=== PATIENT | female | born 2000 | race Caucasian/White ===

== ENCOUNTER 2023-02-19 18:40 | Emergency (ER) | payer OTHER, BC, SELFPAY ==
[2023-02-19] VITALS (11 sets, daily range): BP systolic 109–125; BP diastolic 67–81; PULSE 75–92; RESP 18; TEMP 36.4; O2SAT 94–99; BMI 22.5
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
== END 2023-02-19 20:05 | disposition home or self-care (01) ==
PROVIDERS: Emergency Provider Emergency Medicine Emergency Medical Services
DX: S06.0X1A Concussion with loss of consciousness of 30 minutes or less, initial encounter (principal); V43.92XA Unspecified car occupant injured in collision with other type car in traffic accident, initial encounter
CPT/HCPCS: 70450; 72125; 93005; 95992; 99284; 99291

== ENCOUNTER 2023-09-06 16:23 | Outpatient (CLI) | payer OTHER, MEDICAID, SELFPAY | END 2023-09-06 16:24 | disposition home or self-care (01) | LOC: NFLDREF 16:24 | PROVIDERS: Visit Provider Obstetrics & Gynecology | DX: O26.891 Other specified pregnancy related conditions, first trimester (principal); N89.8 Other specified noninflammatory disorders of vagina; E06.3 Autoimmune thyroiditis; Z3A.08 8 weeks gestation of pregnancy | CPT/HCPCS: 84439; 84443; 87491; 87591 ==

== ENCOUNTER 2023-09-11 12:28 | Outpatient (CLI) | payer OTHER, MEDICAID, SELFPAY ==
--- NOTE | 2023-09-11 12:15 | CRLHL7_ITS ---
For Patients: As a result of the Cures Act, medical imaging exams and procedure reports are released immediately into your electronic medical record. You may view this report before your referring provider. If you have questions, please contact your health care provider. INDICATION: First trimester scan, establish dates. COMPARISON: None. TECHNIQUE: Real-time freeman-scale imaging of the pelvis was performed. FINDINGS: Sonographic imaging demonstrates a single living intrauterine gestation. The embryo demonstrates a regular cardiac rate measuring 185 beats per minute. The embryo`s crown-rump length measurement of 1.9 cm corresponds to a gestational age of 8 weeks 3 days with a sonographic due date of 04/19/2024. There is a normal-appearing yolk sac. There are no gross abnormalities noted within the embryo at this early state of development. The gestational sac has a normal appearance. There is a 5 x 5 x 9 millimeter perigestational hemorrhage. The amount of fluid within the sac appears appropriate for gestational age. The cervix is closed. The myometrium appears normal. The ovaries are of normal size. Corpus luteal cyst right ovary. There are no suspicious fluid collections noted in the cul-de-sac. IMPRESSION: Single living intrauterine with sonographic gestational age 8 weeks 5 days and sonographic due date 04/19/2024. Small subchorionic hemorrhage measuring 5 x 5 x 9 millimeters. Dictated by Jayson Araujo MD @ 09/12/2023 7:28:48 AM (Electronically Signed)
== END 2023-09-11 12:29 | disposition home or self-care (01) ==
LOC: US 12:28
PROVIDERS: Visit Provider Registered Nurse
DX: Z34.91 Encounter for supervision of normal pregnancy, unspecified, first trimester (principal); O20.9 Hemorrhage in early pregnancy, unspecified; Z3A.08 8 weeks gestation of pregnancy
CPT/HCPCS: 76817; 86592; 86703; 86704; 86706; 86762; 86787; 86803; 86850; 86900; 86901; 87086; 87340

== ENCOUNTER 2023-09-11 14:35 | Outpatient (CLI) | payer OTHER, SELFPAY | END 2023-09-11 14:36 | disposition home or self-care (01) | LOC: NFLDREF 09-12 08:14 | PROVIDERS: Visit Provider Registered Nurse | DX: O26.891 Other specified pregnancy related conditions, first trimester (principal); N89.8 Other specified noninflammatory disorders of vagina; R11.2 Nausea with vomiting, unspecified | CPT/HCPCS: 86592; 86703; 86704; 86706; 86762; 86787; 86803; 86850; 86900; 86901; 87086; 87340 ==

== ENCOUNTER 2023-10-08 13:01 | Outpatient (CLI) | payer OTHER, MEDICAID, SELFPAY ==
--- NOTE | 2023-10-08 13:00 | CRLHL7_ITS ---
For Patients: As a result of the Century Cures Act, medical imaging exams and procedure reports are released immediately into your electronic medical record. You may view this report before your referring provider. If you have questions, please contact your health care provider. INDICATION: Follow-up subchorionic hemorrhage COMPARISON: 09/11/2023 TECHNIQUE: Real-time freeman-scale imaging of the pelvis was performed. FINDINGS: Subchorionic hemorrhage is not present. Cervix is closed and measures 3.4 cm. heart rate 165 beats per minute. [place]-rump length of 5.7 cm, 12 weeks 2 days, 04/19/2024. IMPRESSION: Resolution of previously noted subchorionic hemorrhage. Dictated by Jayson Araujo MD @ 10/09/2023 6:43:19 AM (Electronically Signed)
== END 2023-10-08 13:02 | disposition home or self-care (01) ==
LOC: US 13:02
PROVIDERS: Visit Provider Advanced Practice Midwife
DX: O20.9 Hemorrhage in early pregnancy, unspecified (principal)
CPT/HCPCS: 76816

== ENCOUNTER 2023-11-07 09:43 | Outpatient (CLI) | payer OTHER, SELFPAY | END 2023-11-07 09:44 | disposition home or self-care (01) | PROVIDERS: Visit Provider Midwife | DX: E03.8 Other specified hypothyroidism (principal); B37.31 Acute candidiasis of vulva and vagina; Z11.3 Encounter for screening for infections with a predominantly sexual mode of transmission | CPT/HCPCS: 84439; 84443; 87109; 87491; 87591 ==

== ENCOUNTER 2023-11-12 16:12 | Outpatient (CLI) | payer OTHER, SELFPAY ==
--- NOTE | 2023-11-12 16:00 | CRLHL7_ITS ---
For Patients: As a result of the Century Cures Act, medical imaging exams and procedure reports are released immediately into your electronic medical record. You may view this report before your referring provider. If you have questions, please contact your health care provider. INDICATION: Vaginal bleeding, abdominal tenderness COMPARISON: None. TECHNIQUE: Real-time freeman-scale imaging of the pelvis was performed. FINDINGS: Single living intrauterine with heart rate 154 beats per minute. Sonographic gestational age 17 weeks 0 days and a sonographic due date of 04/21/2024. Variable position. Posterior placenta. Normal amniotic fluid with single deepest pocket 3.8 cm. Cervix is closed measuring 3.3 cm. Estimated weight 188 grams, 43rd percentile. BPD 3.4 cm, 16 weeks 4 days, 20th percentile. HC 13.1 cm, 16 weeks 5 days, 13th percentile. HC 11.6 cm, 17 weeks 2 days, 51st percentile. FL 2.4 cm, 17 weeks 3 days, 48th percentile. IMPRESSION: Normal exam. No suspicious findings. Dictated by Jayson Araujo MD @ 11/18/2023 11:41:11 AM (Electronically Signed)
== END 2023-11-12 16:13 | disposition home or self-care (01) ==
LOC: US 16:12
PROVIDERS: Visit Provider Advanced Practice Midwife
DX: O46.92 Antepartum hemorrhage, unspecified, second trimester (principal); Z3A.17 17 weeks gestation of pregnancy
CPT/HCPCS: 76815

== ENCOUNTER 2023-11-22 09:48 | Outpatient (CLI) | payer OTHER, SELFPAY | END 2023-11-22 09:49 | disposition home or self-care (01) | LOC: NFLDREF 09:48 | PROVIDERS: Visit Provider Midwife | DX: B37.31 Acute candidiasis of vulva and vagina (principal) | CPT/HCPCS: 87102 ==

== ENCOUNTER 2023-12-16 11:14 | Outpatient (CLI) | payer OTHER, MEDICAID, SELFPAY ==
--- NOTE | 2023-12-16 11:15 | CRLHL7_ITS ---
For Patients: As a result of the Century Cures Act, medical imaging exams and procedure reports are released immediately into your electronic medical record. You may view this report before your referring provider. If you have questions, please contact your health care provider. INDICATION: Evaluate anatomy. COMPARISON: 11/12/2023, 10/08/2023, 09/11/2023 TECHNIQUE: Real time freeman scale imaging of the fetus was performed as well as color Doppler analysis of the umbilical vessels. FINDINGS: Sonographic imaging demonstrates a single living intrauterine gestation. Fetus demonstrates a regular cardiac rate of 145 beats per minute. Fetus has a breech position. The placenta lies posteriorly without evidence of placenta previa. Edge of the placenta is located 7.1 cm from the internal cervical os. Amniotic fluid volume appears normal. Single deepest vertical pocket: 6.5 cm. The cervix is closed and measures 3.9 cm in length. The composite ultrasound gestational age is calculated at 21 weeks 2 days with an estimated sonographic due date of 04/25/2024. The estimated weight is 435 grams which lies at the 19th %. The following biometric measurements were obtained: Biparietal diameter: 19.1 cm/21 weeks 2 days 11th% Head circumference: 19.1 cm/21 weeks 2 days 11th% Abdominal circumference: 16.4 cm/21 weeks 3 days 22nd% Femur length: 3.7 cm/21 weeks 6 days 29th% The HC/AC ratio measures: 1.16 range (1.06-1.24) On anatomic survey, there is a normal appearance of the cerebral ventricles, cavum septi pellucidi, cisterna magna and cerebellum. The nose, lips, and facial profile appear normal. The cervical, thoracic and lumbar spine are well visualized and appear normal. Incomplete visualization of the heart anatomy due to position. The diaphragm and stomach appear normal. The kidneys and bladder also appear normal. There is a normal three-vessel cord. The hands are not well visualized due to position nor is the placental cord insertion. IMPRESSION: Sonographic gestational age 21 weeks 2 days and sonographic due date of 04/25/2024. Sonographic age is 6 days behind the clinical age. Estimated weight 19th percentile. Abdominal circumference 22nd percentile. Incomplete evaluation of the hands, placental cord insertion, four-chamber heart and outflow tracts. Remainder of the anatomic survey is unremarkable. Short-term follow-up recommended. Dictated by Jayson Araujo MD @ 12/17/2023 3:01:10 PM (Electronically Signed)
== END 2023-12-16 11:15 | disposition home or self-care (01) ==
PROVIDERS: Visit Provider Midwife
DX: Z34.92 Encounter for supervision of normal pregnancy, unspecified, second trimester (principal); Z3A.21 21 weeks gestation of pregnancy
CPT/HCPCS: 76805

== ENCOUNTER 2023-12-16 13:35 | Outpatient (CLI) | payer OTHER, MEDICAID, SELFPAY ==
[2023-12-16 19:40] LABS: Bacterial Vaginosis* Negative (Negative); Candida glab/krus NOT DETECTED (No Detected); Candida species NOT DETECTED (No Detected); Trichomonas vaginalis NOT DETECTED (No Detected)
== END 2023-12-16 13:36 | disposition home or self-care (01) ==
PROVIDERS: Visit Provider Advanced Practice Midwife
DX: O26.892 Other specified pregnancy related conditions, second trimester (principal); N89.8 Other specified noninflammatory disorders of vagina; E03.8 Other specified hypothyroidism; Z3A.22 22 weeks gestation of pregnancy
CPT/HCPCS: 81513; 84443; 87481; 87661

== ENCOUNTER 2023-12-31 13:11 | Outpatient (CLI) | payer OTHER, MEDICAID, SELFPAY ==
--- NOTE | 2023-12-31 13:00 | CRLHL7_ITS ---
For Patients: As a result of the Century Cures Act, medical imaging exams and procedure reports are released immediately into your electronic medical record. You may view this report before your referring provider. If you have questions, please contact your health care provider. INDICATION: f/u anatomy COMPARISON: OB ultrasound on 16 December 2023. TECHNIQUE: Real time freeman scale imaging of the fetus was performed as well as color Doppler analysis of the umbilical vessels. FINDINGS: Sonographic imaging demonstrates a single living intrauterine gestation. The fetus has a regular cardiac rate of 137 beats per minute. The fetus has a vertex orientation. The placenta lies posterior without evidence of placenta previa. Amniotic fluid volume appears normal. The cervix is not visualized. On limited follow-up anatomic survey, there is a normal four-chamber heart view and the left and right ventricular outflow tracts appear normal, and the bilateral hands appear normal. IMPRESSION: 1. Single living intrauterine gestation in vertex position with heart rate 137. The placenta lies posterior without evidence of placenta previa. 2. On limited follow-up anatomic survey, there is a normal four-chamber heart view and the left and right ventricular outflow tracts appear normal, and the bilateral hands appear normal. Dictated by Jose Finney MD @ 01/01/2024 12:17:41 PM (Electronically Signed)
== END 2023-12-31 13:12 | disposition home or self-care (01) ==
LOC: US 13:13
PROVIDERS: Visit Provider Advanced Practice Midwife
DX: Z34.90 Encounter for supervision of normal pregnancy, unspecified, unspecified trimester (principal)
CPT/HCPCS: 76816

== ENCOUNTER 2024-01-27 09:30 | Outpatient (CLI) | payer OTHER, MEDICAID, SELFPAY | END 2024-01-27 09:31 | disposition home or self-care (01) | PROVIDERS: Visit Provider Midwife | DX: Z34.93 Encounter for supervision of normal pregnancy, unspecified, third trimester (principal); O26.893 Other specified pregnancy related conditions, third trimester; A49.3 Mycoplasma infection, unspecified site; Z3A.28 28 weeks gestation of pregnancy | CPT/HCPCS: 86592; 87109 ==

== ENCOUNTER 2024-02-10 09:44 | Outpatient (CLI) | payer OTHER, MEDICAID, SELFPAY | END 2024-02-10 09:45 | disposition home or self-care (01) | PROVIDERS: Visit Provider Midwife | DX: O26.893 Other specified pregnancy related conditions, third trimester (principal); E03.8 Other specified hypothyroidism; O26.819 Pregnancy related exhaustion and fatigue, unspecified trimester; Z3A.30 30 weeks gestation of pregnancy | CPT/HCPCS: 82728; 84439; 84443; 86704; 86706 ==

== ENCOUNTER 2024-02-18 15:00 | Outpatient (CLI) | payer OTHER, MEDICAID, SELFPAY ==
[2024-02-18 19:16] LABS: Bacterial Vaginosis* Negative (Negative); Candida glab/krus NOT DETECTED (No Detected); Candida species DETECTED (No Detected); Trichomonas vaginalis NOT DETECTED (No Detected)
== END 2024-02-18 15:01 | disposition home or self-care (01) ==
PROVIDERS: Visit Provider Midwife
DX: N90.89 Other specified noninflammatory disorders of vulva and perineum (principal); N89.8 Other specified noninflammatory disorders of vagina; R82.90 Unspecified abnormal findings in urine
CPT/HCPCS: 81513; 87086; 87252; 87481; 87661

== ENCOUNTER 2024-03-03 21:33 | Emergency (ER) | payer OTHER, MEDICAID, SELFPAY ==
--- OUTSIDE RECORDS SUMMARY | 2024-03-03 21:35 | XMS_ITS | Clinical Summary ---
Author Organization [facility] Address [address], [place] [address] Care Team Providers Care Tattoo Identifier Name Role Phone Jayson Saxena MD Primary Care Provider [phone] Source Comments You are receiving this document as you are listed as the primary care provider,follow-up provider, or the patient has been referred to you for consultation.This is in compliance with the Medicare and[facility] EHR Incentive Program,which states Providers who transition their patient to another setting of careor provider of care or refers their patient to another provider of care shouldprovide summary care record for each transition of care or referral. Clouli Allergies Active Allergy Reactions Criticality Noted Date Comments Acetaminophen Gastrointestinal 07/25/2022 Lactose Gastrointestinal,Oth er, see comments,Headache 10/14/2017 Other reaction(s): Headache Medications Medication Sig Dispensed Refills Start Date End Date Status levothyroxine (SYNTHROID) 75 MCG tabletIndications:Hy pothyroidism, unspecified type (HRC) Take 1 Tablet (75 mcg) by mouth daily. 90 Tablet 3 08/01/2022 Active valACYclovir (VALTREX) 500 MG tablet TAKE 1 TABLET(500 MG) BY MOUTH EVERY DAY 90 Tablet 3 08/12/2022 Active Vit-Fe Lzd-FF-Uhovg (ONE-A-DAY WOMENS ) 28-0.8 & 223 MG MISC Take 1 Tablet by mouth daily. 09/10/2023 Active FOLIC ACID OR Active aspirin EC 81 MG enteric coated tablet Take 1 Tablet (81 mg) by mouth daily. Active pyridoxine (VITAMIN B-6) 100 MG tablet Take 0.5 Tablets (50 mg) by mouth daily. Active terconazole (TERAZOL7) 0.4 % vaginal cream Insert one applicator full vaginally at bedtime for 7 days, then 2-3 times per week for 1 month. 90 g 1 12/16/2023 Active Active Problems Problem Noted Date Diagnosed Date Careplan: Healthy Beginnings 01/01/2024 Overview (01/01/2024): This patient is enrolled in the Healthy Beginnings Program. The program provides patients with support, education, referrals and resources during their . Reason for enrollment: multiple yes on questionnaire, psychosocial support during For more information, please contact Ruchi Valdovinos RN, Healthy Beginnings After School Counselor, at [phone]. 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 Anxiety 08/01/2022 Mood disorder 08/01/2022 Borderline personality disorder 10/14/2019 Generalized anxiety disorder 01/21/2014 Estimated Date of Delivery Comme nts Yes 04/17/2024 Based on Ultraso und Resolved Problems Problem Noted Date Diagnosed Date Resolved Date Recurrent UTI 08/01/2022 01/30/2023 Encounters Date Type Department Care Team Description 01/13/2024 Notes/Orders [facility]-[employer]ID WAST[employer]ANDFILL TECHNICIAN [address] [place] [address], [address] [address] Ruchi Valdovinos RN Careplan: Healthy Beginnings (Primary Dx) 01/01/2024 Telephone [facility]-[employer] TECHNICIAN [id number] [place] [address], [address] [address] Gauri Macedo7 Patient Care Coordination 01/01/2024 E-Visit [facility]-[employer] W[employer]E [employer] TECHNICIAN [id number] [place] [address], [address] [address] Mychart, Generic Provider 01/01/2024 Telephone [facility]-SOLID WASTE [employer]ANDFILL TECHNICIAN [id number] [place] [address], [address] [place] [address] Gauri Macedo Obg7 [facility]nings New Visit 12/26/2023 Telephone [facility] [address] [place] [address] Branden Stokes MD 12/26/2023 [facility]Visit [facility] [facility] [address] [place] [address] Mychart, Generic Provider 12/17/2023 Notes/Orders [facility]-[employer]ID W[employer]E [employer]ANDFILL TECHNICIAN [address] [facility], [address] [place] [address] [facility] Obg7 12/17/2023 E[facility]Visit [facility] [address] [place] [address] Yobanit, Generic Provider 12/16/2023 Telephone [facility]-[employer] TECHNICIAN [address] [facility], [address] [place] [address] Cyndi Jimenez APRN, CNP Follow-up 12/13/2023 8:15 AM CDT Initial [facility] Services-SOLID WASTE [employer]FILL TECHNICIAN [address] [facility], [address] [place] [address] Cyndi Jimenez APRN, CNP INITIAL VISIT 12/13/2023 E-Visit [facility] [address] [place] [address]. [place] [address] Mychart, Generic Provider from Last 3 Months Immunizations Name Administration Dates Next Due 4vHPV (Gardasil) 04/13/2011,01/19/2011, 1 DTaP 07/21/2003, 1,1998,1998,1998 DTaP (Daptacel) 07/21/2003 Flu Vac (3+ yrs) 12/05/2011, 1,01/18/2010,2006 HepA Ped/Adol (1-18 yrs) 01/19/2011,08/02/2006 HepB Adult (Engerix-B, 20+ y rs, 3 dose series) 12/13/2023 HepB Ped/Adol (0-18 yrs) 1998,1998,0 1998 HepB, Unspecified Formulation 1998, 999,1998 Hib, Unspecified Formulation 08/14/2000, 1998,1998,1998 IPV (Polio) 07/21/2003 Influenza [id number] 02/14/2009 Influenza IIV4 (Quadrivalent ) 0.5mL (16949) 03/08/2016 Influenza LAIV3 2-49 years (Flumist) 12/05/2011, 01/19/2011 Influenza aIIV3 65+ Years (Fluad) 2011,01/19/2011,01/18/2010,2006 Influenza, Unspecified Formulation 03/08/2016 MCV4 (Menactra) 10/06/2010 MCV4 Menveo 2m.+ (two vial) 07/05/2015 MMR 07/21/2003,04/20/1999 OPV, Trivalent (Orimune or tOPV) 1998 Polio, Unspecified Formulation 4,08/14/2000,1998,1998 Tdap 10/06/2010 Varicella 08/02/2006,07/21/2003 Family History Medical History Relation Name Comments Mental Disorder Father Depression Mother Mental Disorder Mother Thyroid Disorder Mother Depression Brother Mental Disorder Brother Mental Disorder Maternal Grandfather Depression Maternal Grandmother Mental Disorder Maternal Grandmother Mental Disorder Paternal Grandmother Depression Sister Mental Disorder Sister Cancer, Breast Negative Family History Cancer, Colon Negative Family History Cancer, Ovary Negative Family History Relation Name Status Comments Father Alive Mother Alive Brother Alive Maternal Grandfather Alive Maternal Grandmother Alive Paternal Grandfather Paternal Grandmother Alive Sister Alive Social History Tobacco Use Types Packs/Day Years Used Date Smoking Tobacco: Never Passive Smoke Exposure: Past Smokeless Tobacco: Never Tobacco Cessation:Counseling Given: Not Answered Alcohol Use Standard Drinks/Week Comments Not Currently 0 (1 standard drink = 0.6 oz pur e alcohol) 1 x mo PHQ-2 Answer Date Recorded PHQ-2 Score 5 08/01/2022 Depression Answer Date Recor ded Last EPDS Total Score 19 12/13/2023 Last EPDS Self Harm Result 2-->sometimes 12/12 Estimated Date of Delivery Comme nts Yes 04/17/2024 Based on Ultraso und Sex and Gender Information Value Date Recorded Sex Assigned at Not on file Gender Identity Not on file Sexual Orientation Not on file Last Filed Vital Signs Vital Sign Reading Time Taken Comments Blood Pressure 109/54 12/13/2023 8:35 AM CDT Pulse 79 12/13/2023 8:35 AM CDT Temperature 36.8 C (98.2 F) 07/25/2022 4:01 PM CDT Respiratory Rate 20 07/25/2022 4:01 PM CDT Oxygen Saturation 100% 07/25/2022 4:01 PM CDT Inhaled Oxygen Concentration - - Weight 63 kg (138 lb 12.8 oz) 12/13/2023 8:35 AM CDT Height 167.6 cm (5' 6) 12/13/2023 8:35 AM CDT Body Mass Index 22.4 12/13/2023 8:35 AM CDT Plan of Treatment Health Maintenance Due Date Last Done Comments Cervical Cancer Screening Due 1998 Hep C Screening (Preventive Services) 1998 Adult Preventive Visit 2016 DTaP/Tdap/Td (7 - Tdap) 10/06/2020 10/07/19, 07/21/2003, 07/21/2003, Additional history exists COVID-19 Vaccine ( season) 2023 Influenza (#1) 2023 03/08/2016, 07/2016, 12/05/2011, Additional history exists Chlamydia 05/22/2024 05/23/2023, 05/03, 03/15/2021 Zoster/Shingles (1 of 2) 2048 Hib Completed 08/14/2000, 10/02, 1998, Additional history exists IPV (Polio) Completed 07/21/2003, 07/02, 08/14/2000, Additional history exists HepA Completed 01/19/2011, 08/02/2006 HPV Vaccine Completed 04/13/2011, 01/02, 10/06/2010 MCV4 Completed 07/05/2015, 10/06/2010 HIV Screening (Preventive Services) Completed 05/23/2023 HepB Completed 12/13/2023, 10/02, 1998, Additional history exists Pneumococcal Aged Out No longer eligi ble based on patient's age to complete this topic Care Teams Tattoo Identifier Relationship Specialty [place] [address] [address] PCP - General Family Practice 08/06/22
--- OUTSIDE RECORDS SUMMARY | 2024-03-03 21:35 | XMS_ITS | Encounter Summary ---
Author Organization [facility] Address [address] [place] [address] Care Team Providers Care Motel Clerk Name Role Phone Jayson Saxena MD Primary Care Provider [phone] Encounter Details Date Type Department Care Team (Late st Contact Info) Description 12/26/2023 E[facility]Visit [facility] [address] [place] [address] Mychart, [place] [address] Social History Tobacco Use Types Packs/Day Years Used Date Smoking Tobacco: Never Passive Smoke Exposure: Past Smokeless Tobacco: Never Alcohol Use Standard Drinks/Week Comments Not Currently [...] on file Sexual Orientation Not on file documented as of this encounter Plan of Treatment Not on file documented as of this encounter Visit Diagnoses Not on filedocumented in this encounter Care Teams Motel Clerk Relationship Specialty [place] [address] [address] [address] PCP - General Family Practice 08/06/22 documented as of this encounter
--- OUTSIDE RECORDS SUMMARY | 2024-03-03 21:35 | XMS_ITS | Encounter Summary ---
Author Organization [facility] Address [address] [place] [address] Care Team Providers Care National Accounts Recruiter Name Role Phone Jayson Saxena MD Primary Care Provider [phone] Encounter Details Date Type Department Care Team (Late st Contact Info) Description 12/17/2023 E-Visit [facility] [facility] [address] [place] [address] Mychart, [place] [address] Social History Tobacco Use Types Packs/Day Years [...] on filedocumented in this encounter Care Teams National Accounts Recruiter Relationship Specialty [place] [address] [place] [address] PCP - General Family Practice 08/06/22 documented as of this encounter
--- OUTSIDE RECORDS SUMMARY | 2024-03-03 21:35 | XMS_ITS | Encounter Summary ---
Author Organization [facility] Address [address], [place] [address] Care Team Providers Care Casing Flusher Name Role Phone Jayson Saxena MD Primary Care Provider [phone] Encounter Details Date Type Department Care Team (Late st Contact Info) Description 01/01/2024 E-Visit [facility]-AVIATION MAINTENANCE INSTRUCTOR [id number] [place] [address] Kate, [place] [address] Social History Tobacco Use Types Packs/Day Years [...] on filedocumented in this encounter Care Teams Casing Flusher Relationship Specialty [place] [address] [place] [address] PCP - General Family Practice 08/06/22 documented as of this encounter
--- OUTSIDE RECORDS SUMMARY | 2024-03-03 21:35 | XMS_ITS | Clinical Summary ---
Author Organization [employer] [facility] Address [place], [place] [address] Care Team Providers Care Systems Lead Name Role Phone Clinic, [facility] Primary Care Pro vider Allergies Active Allergy Reactions Criticality Noted Date Comments Acetaminophen Other - Describe In Comment Field 08/03/2019 Lactose GI Upset 10/14/2017 Other reaction(s): Headache Medications No known medications Active Problems Problem Noted Date Diagnosed Date Genital herpes 04/27/2021 Borderline personality disorder 10/14/2019 Arthralgia of temporomandibular joint 07/31/2018 Moderate episode of recurrent major depressive d isorder 04/12/2017 Overview (04/27/2021): Buspar 2020 cymbalta 2020 lexapro 5767-7830 prozac 2015 Celexa 2014 Hydrozyzine 2015 Mirtazepine Nortriptyline 2019 Seroquel 2020 zoloft 2020 Trazodone 2018 Effexor 2019 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 Raynaud's phenomenon 03/12/2016 Generalized anxiety disorder 01/21/2014 Insomnia, psychophysiological 01/21/2014 Myopia 05/18/2013 Resolved Problems Problem Noted Date Diagnosed Date Resolved Date Recurrent UTI 11/29/2014 11/29/2014 Urinary urgency 11/29/2014 04/12/2017 MDD (major depressive disord er), single episode 05/18/2014 04/12/2017 Infectious mononucleosis 02/16/2014 Dysthymic disorder 01/21/2014 8 Subclinical hypothyroidism 10/30/2013 0 04/12/2017 Elevated TSH 10/19/2013 10/30/2013 Immunizations Name Administration Dates Next Due DTaP 07/21/2003, 1,1998,08/11,1998 Hepatitis A (Peds) 01/19/2011,08/02/2006 Hepatitis B (Peds) 1998,1998, 999 Hib Conjugate, Unspecified 08/14/2000,,1998,06/03 Human Papilloma Virus Vaccine 04/13/2011, 011,10/06/2010 Influenza A (H1N1), Inactiva sabine (Age >=3 Years) 02/14/2009 Influenza, IIV3 (Age >=3 years) 12/05/19 12,01/19/2011,01/18/2010,04/19 Influenza, IIV4 03/08/2016 MENINGOCOCCAL VACCINE 2 VIAL [id number] (MENVEO) 07/05/2015 MMR 07/21/2003,04/20/1999 Meningococcal Vaccine (Menactra) 10/06/2010 Polio Virus, Unspecified 07/21/2003,08/02,1998,06/03 Tdap 10/06/2010 Varicella Vaccine 08/02/2006,07/21/2003 Family History Medical History Relation Name Comments Hypertension Father Psychiatric illness Father Psychiatric illness Half-Brother autism, aspergers Psychiatric illness Half-Sister 1 autism Arthritis Maternal Grandfather Heart Disease Maternal Grandfather Heart failure Maternal Grandfather abn he art rhythm, cardioversion Hypertension Maternal Grandfather Stroke Maternal Grandfather Thyroid Disease Maternal Grandfather Arthritis Maternal Grandmother Blood Disease Maternal Grandmother Heart Disease Maternal Grandmother Hypertension Maternal Grandmother Osteoporosis Maternal Grandmother Cancer Maternal Uncle lung Heart Disease Maternal Uncle Hypertension Maternal Uncle Arthritis Mother Depression Mother Fibromyalgia Mother Psychiatric illness Mother Bipolar and OCD Thyroid Disease Mother Relation Name Status Comments Father Alive Half-Brother Alive Half-Sister 1 Alive Half-Sister 2 Alive Maternal Grandfather Alive Maternal Grandmother Alive Maternal Uncle Mother Alive Paternal Grandfather Paternal Grandmother Alive Social History Tobacco Use Types Packs/Day Years Used Date Smoking Tobacco: Never Smokeless Tobacco: Never Tobacco Cessation:Counseling Given: Yes Alcohol Use Standard Drinks/Week Comments No 0 (1 standard drink = 0.6 oz pur e alcohol) rarely [facility] Utilities Answer Date Recorded Do you have trouble paying f or utilities (for example, heat, electricity, water, phone)? Yes 05/23/2023 PHQ-2 Answer Date Recorded PHQ-2 TOTAL SCORE 6 05/09/2021 Social Connections Answer Date Recorded Do you often feel lonely or isolated from those around you? 4 05/23/2023 Financial Resource Strain Answer Date R ecorded Difficulty of Paying Living Expenses 1 05/23/2023 Difficulty of Paying Living Expenses 2 05/23/2023 Food Insecurity Answer Date Recorded Do you worry your food will run out before you are able to buy more? 1 05/23/2023 Transportation Needs Answer Date Record ed Does lack of transportation keep you from medica l appointments? 1 05/23/2023 Does lack of transportation keep you from work, meetings or getting things that you need? 1 05/23/2023 Housing Stability Answer Date Recorded What is your housing situation today? 3 05/23/2023 Interpersonal Safety Answer Date Record ed Are you being hit, kicked, p ushed or yelled at (see row info)? 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 on file Not on file Not on file Obstetrics History Last Filed Vital Signs Vital Sign Reading Time Taken Comments Blood Pressure 100/60 05/23/2023 9:48 AM CDT Pulse 70 05/23/2023 9:48 AM CDT Temperature 36.8 C (98.2 F) 02/11/2023 11:25 PM RESIDENCE LIFE DIRECTOR Respiratory Rate 16 02/11/2023 11:2 5 PM RESIDENCE LIFE DIRECTOR Oxygen Saturation 98% 05/23/2023 9:48 AM CDT Inhaled Oxygen Concentration - - Weight 62.1 kg (136 lb 14.4 oz) 05/23/2023 9:48 AM CDT Height 167.6 cm (5' 6) 05/23/2023 9:48 AM CDT Body Mass Index 22.1 05/23/2023 9:48 AM CDT Plan of Treatment Health Maintenance Due Date Last Done Comments Tetanus booster 10/06/2020 10/06/2010 Depression screening for age 12+ 05/09/2022 05/09/2021, 04/27/2021, 10/20/2019, Additional history exists COVID-19 vaccine series ( season) 2023 Influenza for age 9-49 11/03/2023 7, 12/05/2011, 01/19/2011, Additional history exists BMI (ht and wt on same day) for age 18+ 05/22/2024 05/23/2023, 04/27/2021, 07/31/2018, Additional history exists Pap test for age 21-65 09/05/2024 4, 09/06/2023, 04/04/2019 (Completed outside of [facility]) Tdap Completed 10/06/2010 HPV series for age 9-26 Completed 04/13/19 12, 01/19/2011, 10/06/2010 HIV for age 15-65 Completed 05/23/2023 Hepatitis C screening for age 18-79 Completed 05/23/2023 Pneumococcal series for age 6-49 Aged Out No longer eligible based on patient's age to complete this topic Procedures Procedure Name Priority Date/Time Associated Diagnosis Comments HOSPICE CONSULTANT THIN PREP PAP SCREEN IMAGED Routine 09/06/2023 3:25 PM CDT ANTI HIV 1/2 Routine 05/23/2023 10:11 AM CDT Screen for STD (sexually transmitted disease) ANTI HCV Routine 05/23/2023 10:11 AM CDT Screen for STD (sexually transmitted disease) from Last 3 Months or Most Recently Relevant to Health Maintenance Results * HOSPICE CONSULTANT THIN PREP PAP SCREEN IMAGED (09/06/2023 3:25 PM CDT) Case Report Gynecologic Cytology Report Case: [id number] Authorizing Provider: Yodit Boss MD Collected: 09/06/2023 1525 Ordering Location: [facility] Received: 09/10/2023 1003 First Screen: Renato Burgos Specimen: HOSPICE CONSULTANT ThinPrep Vial Screening, Cervical 09/12/2023 3:00 PM CDT [facility] INTERPRETATION/ RESULT NEGATIVE FOR INTRAEPITHELIAL LESION OR MALIGNANCY (NIL) (none) 09/12/2023 3:00 PM CDT [facility] ENTRAL LABORATORY NISM(S) Shift in tashi suggestive of bacterial vaginosis 09/12/2023 3:00 PM CDT [facility] ENTRAL LABORATORY SPECIMEN ADEQUACY Satisfactory for evaluation Endocervical component present 09/12/2023 3:00 PM CDT [facility] HPV REQUEST HPV and PAP 09/12/2023 3:00 PM CDT [facility] Date of LMP 07/07/2023 09/12/2023 3:00 PM CDT [facility] Last Pap Date 09/12/2023 3:00 PM CDT [facility] Comment:2020 Last Pap Result NIL 3:00 PM CDT [facility] Abnormal Pap or [place] Bx in last 5 years No 09/12/2023 3:00 PM CDT [facility] ENTRAL LABORATORY Menstrual Status 09/12/2023 3:00 PM CDT [facility] [place] Bx Done Today No 09/12/2023 3:00 PM CDT [facility] Additional Information 09/12/2023 3:00 PM CDT [facility] ENTRAL LABORATORY Comment: Interpreted at [facility], Central Laboratory - [address], [place] [address] Automated Review Successful 09/12/2023 3:00 PM CDT [facility] ENTRAL LABORATORY Comment:Specimen processed s uccessfully by automated concrete paver device, ThinPrep Imaging System, [employer] ANCILLARY TESTING HOSPICE CONSULTANT HPV Ordered, Please see separate report 09/12/2023 3:00 PM CDT [facility] Note The pap test is a screening technique, not a diagnostic procedure. It is used primarily to screen for squamous cancers and precursor lesions. Published studies have shown that it is subject to both false negative and false positive results. The pap test should not be used as the sole means to diagnose or exclude pre-malignant and malignant lesions. 09/12/2023 3:00 PM CDT [facility] Other (Cervical) 09/06/2023 3:25 PM CDT 09/10/2023 10:03 AM CDT Yodit Boss MD PATHOLOGY/CYTOLOGY Final Result Performing Organization Address [facility] Co de Phone Number [facility] [address] [place] [address], [place] * ANTI HCV (05/23/2023 10:11 AM CDT) HEPATITIS C ANTIBODY Non-Reacti ve Non-React manoj 05/23/2023 4:17 PM CDT [facility] TRAL LABORATORY Comment:Please note, per www .CDC.gov: If a patient is known to be at high risk of HCV infection, or is symptomatic, and the physician's suspicion of HCV infection is high, HCV RNA testing is often employed and is of diagnostic value, even after an initial negative anti-HCV test result. Blood BLOOD SPECIMEN / Unknown Butterfly / Unknown 05/23/2023 10:11 AM CDT 05/23/2023 10:11 AM CDT Sapphire Drake MD SEND OUTS Final R esult Performing Organization Address City/[facility]/ZIP Co de Phone Number [facility] [address] [place] [id number], [place] * ANTI HIV 1/2 (05/23/2023 10:11 AM CDT) HIV-1/HIV-2 SCREEN Non-Reacti ve Non-Reacti ve 05/23/2023 4:20 PM CDT [facility] TRAL LABORATORY Comment:HIV-1 p24 and HIV-1/ HIV-2 Ab Not Detected. Blood BLOOD SPECIMEN / Unknown Butterfly / Unknown 05/23/2023 10:11 AM CDT 05/23/2023 10:11 AM CDT us Sapphire Drake MD SEND OUTS Final R esult [facility] [address] [place] [address], from Last 3 Months or Most Recently Relevant to Health Maintenance Insurance [facility] [id number] [place] [id number] [facility] [address] [id number] * Guarantor: UNKNOWN Account Type Relation to Patient Date of Phone Billing Address Personal/Family Employer Advance Directives * Full Code (Latest Code Status on File) Date Activated Date Inactivated Comments 04/30/2016 10:09 AM 04/30/2016 2:59 PM Question Answer Comments Code Status Discussion: Not Discussed * Full Code Date Activated Date Inactivated Comments 04/30/2016 8:39 AM 04/30/2016 10:09 AM Question Answer Comments Code Status Discussion: Not Discussed Care Teams Systems Lead Relationship Specialty Start Date End Date Clinic, [facility] [address] [place] [address] PCP - General 07/24/21
[2024-03-03 21:47] VITALS: BP 128/74; PULSE 93; RESP 18; TEMP 36.5; O2SAT 98; BMI 26.0
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
[2024-03-03 22:00] VITALS: O2SAT 96
--- NOTE | 2024-03-03 22:12 | CRLHL7_ITS ---
For Patients: As a result of the Century Cures Act, medical imaging exams and procedure reports are released immediately into your electronic medical record. You may view this report before your referring provider. If you have questions, please contact your health care provider. Indication: Right upper quadrant pain, Technique: Limited abdominal ultrasound. Evaluation of the liver, gallbladder, common bile duct, pancreas, right kidney, and aorta/IVC. Grayscale and color Doppler imaging utilized. Comparison: None Findings: Liver: Unremarkable size and echotexture. Gallbladder: No stones or sludge. Contracted. Common bile duct: Not visualized. Pancreas: Partially obscured. Visualized portions are unremarkable. Right kidney: Mild to moderate hydronephrosis. Aorta/IVC: Unremarkable. Impression: [id number] right-sided hydronephrosis. The common bile duct can not be visualized. No other acute sonographic abnormality appreciated, allowing for contracted gallbladder due to nonfasting state. Dictated by Reilly Dangelo MD @ 03/04/2024 12:27:16 AM (Electronically Signed)
[2024-03-03 22:30] VITALS: BP 111/63; PULSE 96; RESP 18; TEMP 36.4; O2SAT 97
[2024-03-03 22:30] LABS: Basophils Percent Auto 0.3 % (0.0-3.0); Eosinophils Percent Auto 1.9 % (0.0-7.0); Hematocrit 35.6 % (33.0-51.0); Hemoglobin* 12.2 gm/dL (12.0-16.0); Immature Granulocytes Pct Auto 2.1 %; Lymphocytes Percent Auto 18.3 % (20-44); Mean Corpuscular HGB Conc 34 gm/dL (32-36); Mean Corpuscular Hemoglobin 32 pg (26-34); Mean Corpuscular Volume 94 fL (80-100); Monocytes Percent Auto 7.5 % (0.0-11.0); Neutrophils Percent Auto 69.9 % (42.0-72.0); Platelet Count* 182 K/uL (140-440); RDW Coefficient of Variation % 13.1 % (11.5-15.5); Red Blood Count 3.79 m/uL (4.00-5.20); White Blood Count* 11.82 K/uL (4.50-11.00)
[2024-03-03 22:35] LABS: Slide Review Reflex No
[2024-03-03 22:40] LABS: Albumin* 3.7 g/dL (3.3-5.0); Chloride* 105 mmol/L (96-114)
[2024-03-03 22:41] LABS: Potassium* 3.7 mmol/L (3.6-5.1); Sodium* 134 mmol/L (135-149)
--- OUTSIDE RECORDS SUMMARY | 2024-03-03 22:42 | XMS_ITS | Clinical Summary ---
Author Organization [employer] [facility] s & [facility] Address [place], [place] [address] Care Team Providers Care Air Export Logistics Manager Name Role Phone Clinic, 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 Not on file Not on file Not on file Obstetrics History Last Filed Vital Signs Vital Sign Reading Time Taken Comments Blood Pressure 100/60 05/23/2023 9:48 AM CDT Pulse 70 05/23/2023 9:48 AM CDT Temperature 36.8 C (98.2 F) 02/11/2023 11:25 PM LABELING ASSOCIATE Respiratory Rate 16 02/11/2023 11:2 5 PM LABELING ASSOCIATE Oxygen Saturation 98% 05/23/2023 9:48 AM CDT [...] 09/05/2024 4, 09/06/2023, 04/04/2019 (Completed outside of [facility]) Tdap Completed 10/06/2010 HPV series for age 9-26 Completed 04/13/19 12, 01/19/2011, 10/06/2010 HIV for age 15-65 Completed 05/23/2023 Hepatitis C screening for age 18-79 Completed 05/23/2023 Pneumococcal series for age 6-49 Aged Out No longer eligible based on patient's age to complete this topic Procedures Procedure Name Priority Date/Time Associated Diagnosis Comments GUM SCORING MACHINE OPERATOR THIN PREP PAP SCREEN IMAGED Routine 09/06/2023 3:25 PM CDT ANTI HIV 1/2 Routine 05/23/2023 10:11 AM CDT Screen for STD (sexually transmitted disease) ANTI HCV Routine 05/23/2023 10:11 AM CDT Screen for STD (sexually transmitted disease) from Last 3 Months or Most Recently Relevant to Health Maintenance Results * GUM SCORING MACHINE OPERATOR THIN PREP PAP SCREEN IMAGED (09/06/2023 3:25 PM CDT) Case Report Gynecologic Cytology Report Case: [id number] Authorizing Provider: Yodit Boss MD Collected: 09/06/2023 1525 Ordering Location: [facility] Received: 09/10/2023 1003 First Screen: Renato Burgos Specimen: GUM SCORING MACHINE OPERATOR ThinPrep Vial Screening, Cervical 09/12/2023 3:00 PM CDT [facility] ENTRAL LABORATORY INTERPRETATION/ RESULT NEGATIVE FOR INTRAEPITHELIAL LESION OR MALIGNANCY (NIL) (none) 09/12/2023 3:00 PM CDT [facility] [employer] [facility] ENTRAL LABORATORY NISM(S) Shift in tashi suggestive of bacterial vaginosis 09/12/2023 3:00 PM CDT [facility] ENTRAL LABORATORY SPECIMEN ADEQUACY Satisfactory for evaluation Endocervical component present 09/12/2023 3:00 PM CDT [facility] HPV REQUEST HPV and PAP 09/12/2023 3:00 PM CDT [facility] Date of LMP 07/07/2023 09/12/2023 3:00 PM CDT [facility] Last Pap Date 09/12/2023 3:00 PM CDT [facility] Comment:2020 Last Pap Result NIL 3:00 PM CDT [facility] Abnormal Pap or [place] Bx in last 5 years No 09/12/2023 3:00 PM CDT [facility] ENTRAL LABORATORY Menstrual Status 09/12/2023 3:00 PM CDT [facility] [place] Bx Done Today No 09/12/2023 3:00 PM CDT [facility] Additional Information 09/12/2023 3:00 PM CDT [facility] ENTRAL LABORATORY Comment: Interpreted at [facility], Central Laboratory - [address], [place] [address] Automated Review Successful 09/12/2023 3:00 PM CDT [facility] ENTRAL LABORATORY Comment:Specimen processed s uccessfully by automated shopping investigator device, ThinPrep Imaging System, [employer] ANCILLARY TESTING GUM SCORING MACHINE OPERATOR HPV Ordered, Please see separate report 09/12/2023 3:[address] [facility] Note The pap test is a [...] and malignant lesions. 09/12/2023 3:[address] [facility] Other (Cervical) 09/06/2023 3:25 PM CDT 09/10/2023 10:03 AM CDT Yodit Boss MD PATHOLOGY/CYTOLOGY Final Result Performing Organization Address [facility] Co de Phone Number [facility] [address] [place] [address], [place] * ANTI HCV (05/23/2023 10:11 AM CDT) HEPATITIS C ANTIBODY Non-Reacti ve Non-React manoj 05/23/2023 4:17 PM CDT [facility] TRAL LABORATORY Comment:Please note, per www .CDC.gov: [...] OUTS Final R esult Performing Organization Address City/[facility]/ZIP Co de Phone Number [facility] [address] [place] [address], [place] * ANTI HIV 1/2 (05/23/2023 10:11 AM CDT) HIV-1/HIV-2 SCREEN Non-Reacti ve Non-Reacti ve 05/23/2023 4:20 PM CDT [facility] TRAL LABORATORY Comment:HIV-1 p24 and HIV-1/ HIV-2 Ab Not Detected. Blood BLOOD SPECIMEN / Unknown Butterfly / Unknown 05/23/2023 10:11 AM CDT 05/23/2023 10:11 AM CDT us Sapphire Drake MD SEND OUTS Final R esult [facility] [address] [place] [address], from Last 3 Months or Most Recently Relevant to Health Maintenance Insurance [facility] [id number] [id number] [facility] [address] [id number] * Guarantor: UNKNOWN Account Type Relation to [...] Code Status Discussion: Not Discussed Care Teams Air Export Logistics Manager Relationship Specialty Start Date End Date Clinic, [facility] [address] [facility] [place] [address] PCP - General 07/24/21
--- OUTSIDE RECORDS SUMMARY | 2024-03-03 22:42 | XMS_ITS | Encounter Summary ---
Author Organization [facility] Address [address] [place] [address] Care Team Providers Care Hand Tool Filer Name Role Phone Jayson Saxena MD Primary Care Provider [phone] Encounter Details Date Type Department Care Team (Late st Contact Info) Description 12/17/2023 E-Visit [facility] [address] Maternal Medicine [address] [place] [address] Mychart, [place] [address] Social History Tobacco Use Types Packs/Day Years [...] on filedocumented in this encounter Care Teams Hand Tool Filer Relationship Specialty [place] [address] [address] PCP - General Family Practice 08/06/22 documented as of this encounter
--- OUTSIDE RECORDS SUMMARY | 2024-03-03 22:42 | XMS_ITS | Encounter Summary ---
Author Organization [facility] Address [address], [place] [address] Care Team Providers Care Staff Home Therapy Rn Name Role Phone Jayson Saxena MD Primary Care Provider [phone] Encounter Details Date Type Department Care Team (Late st Contact Info) Description 01/01/2024 E-Visit [facility]-ENVIRONMENTAL MAINTENANCE WORKER [id number] [place] [phone] Kate, [place] [address] Social History Tobacco Use Types Packs/Day Years [...] on filedocumented in this encounter Care Teams Staff Home Therapy Rn Relationship Specialty [place] [address] [place] [address] PCP - General Family Practice 08/06/22 documented as of this encounter
--- OUTSIDE RECORDS SUMMARY | 2024-03-03 22:42 | XMS_ITS | Encounter Summary ---
Author Organization [facility] Address [address] [place] [address] Care Team Providers Care Linoleum Floor Installer Name Role Phone Jayson Saxena MD Primary Care Provider [phone] Encounter Details Date Type Department Care Team (Late st Contact Info) Description 12/26/2023 E[facility]Visit [facility] [address] Maternal Medicine [address] [place] [address] Mychart, [place] [address] Social History Tobacco Use Types Packs/Day Years [...] on filedocumented in this encounter Care Teams Linoleum Floor Installer Relationship Specialty [place] [address] [place] [address] [address] PCP - General Family Practice 08/06/22 documented as of this encounter
--- OUTSIDE RECORDS SUMMARY | 2024-03-03 22:42 | XMS_ITS | Clinical Summary ---
Author Organization [facility] Address [address] [address] Care Team Providers Care Parts Product Analyst Name Role Phone Jayson Saxena MD Primary Care Provider [phone] Source Comments You are receiving this document as you are listed as the primary care provider,follow-up provider, or the patient has been referred to you for consultation.This is in compliance with the Medicare and[facility] Cent[facility] EHR Incentive Program,which states Providers who transition their patient to another setting of careor provider of care or refers their patient to another provider of care shouldprovide summary care record for each transition of care or referral. [employer] Allergies Active Allergy Reactions Criticality Noted Date [...] DAY 90 Tablet 3 08/12/2022 Active Vit-Fe Jbw-FQ-Xyxbe (ONE-A-DAY WOMENS ) 28-0.8 & 223 MG [...] please contact Ruchi Valdovinos RN, [facility] Clock And Watch Hands Painter, at [phone]. Recurrent candidiasis of vagina 12/17/2023 Supervision of high risk in [facility] 12/17/2023 Fibromyalgia 12/17/2023 Not immune [...] Type Department Care Team Description 01/13/2024 Notes/Orders [facility]-MEDICAL ASSISTANT SECRETARY [address] [place] [address], [address] [address] Ruchi Valdovinos RN Careplan: [facility] (Primary Dx) 01/01/2024 Telephone [facility]-MEDICAL ASSISTANT SECRETARY [address] [place] [address], [address] [address] Gauri Macedo7 Patient Care Coordination 01/01/2024 E-Visit [facility]-MEDICAL ASSISTANT SECRETARY [address] [place] [address], [address] [address] Mychart, Generic Provider 01/01/2024 Telephone [facility]-MEDICAL ASSISTANT SECRETARY [address] [place] [address], [address] [place] [address] Gauri Macedo Obg7 [facility] New Visit 12/26/2023 Telephone [facility] Maternal Medicine [address] [place] [address] Branden Stokes MD 12/26/2023 E[facility]Visit [facility] [address] Maternal Medicine [address] [place] [address] Mychart, Generic Provider 12/17/2023 Notes/Orders [facility]-MEDICAL ASSISTANT SECRETARY [address] [facility], [address] [place] [address] [employer] [place] Obg7 12/17/2023 E-Visit [facility] Maternal Medicine [address] [place] [address] Yobanit, Generic Provider 12/16/2023 Telephone [facility]-MEDICAL ASSISTANT SECRETARY [address] [facility], [address] [place] [address] Cyndi Jimenez APRN, CNP Follow-up 12/13/2023 8:15 AM CDT Initial [facility] Services-MEDICAL ASSISTANT SECRETARY [address] [facility], [address] [place] [address] Cyndi Jimenez APRN, CNP INITIAL VISIT 12/13/2023 E-Visit [facility] [address] [place] [address]. [place] [address] Mychart, Generic Provider from Last 3 Months [...] Formulation 08/14/2000, 1998,1998,1998 IPV (Polio) 07/21/2003 Influenza E8F9-04 02/14/2009 Influenza IIV4 (Quadrivalent ) 0.5mL (33144) 03/08/2016 Influenza LAIV3 2-49 years (Flumist) 12/05/2011, [...] age to complete this topic Care Teams Parts Product Analyst Relationship Specialty [place] [address] [place] [place] [address] PCP - General Family Practice 08/06/22
[2024-03-03 22:43] LABS: Alkaline Phosphatase* 92 U/L (40-150); Anion Gap 5 mEq/L (7-15); Aspartate Amino Transferase* 25 U/L (12-35); Bilirubin Direct* 0.1 mg/dL (0.0-0.5); Bilirubin Total* 0.3 mg/dL (0.1-1.5); Blood Urea Nitrogen* 16 mg/dL (5-24); Calcium* 9.4 mg/dL (8.4-10.6); Carbon Dioxide* 24 mmol/L (20-32); Creatinine* 0.7 mg/dL (0.5-1.5); Est. Creatinine Clearance* 115.01; Estimated Glomerular Filt Rate 123 ml/min; Glucose* 92 mg/dL (60-115); Lipase* 62 U/L (23-300); Total Protein* 6.5 g/dL (6.0-8.3)
[2024-03-03 22:44] LABS: Alanine Aminotransferase* 24 U/L (4-35)
[2024-03-03] MEDS: ONDANSETRON 2 MG/ML inj 4 MG IVP (22:54)
[2024-03-03 23:35] VITALS: BP 99/64; PULSE 79; RESP 20; O2SAT 97
[2024-03-03] MEDS: LACTATED RINGERS 1000 ML 1,000 ML 125 ML IV (23:43)
[2024-03-04 00:03] VITALS: BP 111/76; PULSE 84; RESP 20; O2SAT 99
[2024-03-04 00:04] LABS: Appearance Urine Clear (Clear); Bilirubin Urine Negative (Negative); Blood Urine Negative (Negative); Color Urine Yellow (Yellow); Glucose Urine Negative (Negative); Ketones Urine Negative (Negative); Leukocyte Esterase Urine Negative (Negative); Nitrite Urine Negative (Negative); Protein Urine Negative (Negative); Specific Gravity Urine 1.025 (1.000-1.030); Urobilinogen Urine 0.2 (0.2-1.0); pH Urine 6.5 (5.0-8.5)
[2024-03-04 00:14] LABS: Bacteria Urine Few; RBC Urine 0-2 (0-2); Squamous Epithelial Cell Urine Few (None-Few)
[2024-03-04 00:26] LABS: Total Protein Urine 5 mg/dL
[2024-03-04 00:27] LABS: Creatinine Urine 107.4 mg/dL; Protein Creatinine Ratio Urine 0.05 (0-0.19)
[2024-03-04 00:33] VITALS: BP 109/71; PULSE 86; RESP 20; O2SAT 96
[2024-03-04 01:00] VITALS: BP 111/70; PULSE 87; RESP 20; TEMP 36.5; O2SAT 96
[2024-03-04 01:01] VITALS: BP 111/70; PULSE 87; RESP 20; TEMP 36.5
--- NOTE | 2024-03-05 08:21 | PC.OBNST ---
NST Note NST Note Start: 03/04/24 01:06 Freq: ONCE Status: Active Protocol: Document 03/04/24 00:45 DAVID (Rec: 03/05/24 08:20 MMB [id number]) NST Note 1 Para (# of births) 0 EDC 04/19/24 Gestational Age In Weeks & Days 33 Weeks & 4 Days Patient Presented with Complaint(s) of Contractions/cramping,Pain, Nausea and vomiting,Headache If Pain, describe location right upper quadrant and flank pain Reactive Yes Appropriate for Gestational Age Yes NONA Salguero RN Date 03/04/24 Reactive Yes Appropriate for Gestational Age Yes NONA Hull RN Date 03/04/24 OB NST charge Yes Complete NST Note via Write Note Yes The provider's electronic signature indicates the NST is reactive/appropriate for gestational age. *Note to provider: If an addendum is required, open the patient's chart and click on the note under the Nurse/Allied Health tab.
--- NOTE | 2024-03-05 08:32 | PC.OBNST ---
NST Note NST Note Start: 03/04/24 01:06 Freq: ONCE Status: Active Protocol: Document 03/04/24 00:45 DAVID (Rec: 03/05/24 08:20 MMB [id number]) NST Note 1 Para (# of births) 0 EDC 04/19/24 Gestational Age In Weeks & Days 33 Weeks & 4 Days Patient Presented with Complaint(s) of Contractions/cramping,Pain, Nausea and vomiting,Headache If Pain, describe location right upper quadrant and flank pain Reactive Yes Appropriate for Gestational Age Yes NONA Salguero RN Date 03/04/24 Reactive Yes Appropriate for Gestational Age Yes NONA Hull RN Date 03/04/24 OB NST charge Yes Complete NST Note via Write Note Yes The provider's electronic signature indicates the NST is reactive/appropriate for gestational age. *Note to provider: If an addendum is required, open the patient's chart and click on the note under the Nurse/Allied Health tab.
== END 2024-03-04 01:03 | disposition home or self-care (01) ==
PROVIDERS: Advanced Practice Midwife; Emergency Provider Family Medicine
DX: N13.2 Hydronephrosis with renal and ureteral calculous obstruction (principal); U07.1 COVID-19
CPT/HCPCS: 36415; 59025; 76705; 80048; 80076; 81001; 82565; 82570; 83690; 84156; 84450; 84460; 84520; 85025; 85027; 87086; 94761; 96374; 99284; J2405; J7120

== ENCOUNTER 2024-03-05 21:07 | Outpatient (CLI) | payer OTHER, MEDICAID, SELFPAY ==
--- OUTSIDE RECORDS SUMMARY | 2024-03-05 20:17 | XMS_ITS | Clinical Summary ---
Author Organization [employer] [facility] s & [facility]ates Address [place], [place] [address] Care Team Providers Care Mutual Funds Agent Name Role Phone Clinic, [facility] Primary Care Pro vider Allergies Active [...] Overview (04/27/2021): Buspar 2020 cymbalta 2020 lexapro 4773-6521 prozac 2015 Celexa 2014 Hydrozyzine 2015 Mirtazepine [...] = 0.6 oz pur e alcohol) rarely [facility] Utilities Answer Date Recorded Do you have [...] Sex Assigned at Female 05/02/2021 7:39 AM FILTER MACHINE OPERATOR Legal Sex Female 8:37 AM CDT Gender Identity Female 05/02/2021 7:39 AM FILTER MACHINE OPERATOR Sexual Orientation Bisexual 05/02/2021 7: 39 AM FILTER MACHINE OPERATOR 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 on file Not on file Not on file Obstetrics History Last Filed Vital Signs Vital Sign Reading Time Taken Comments Blood Pressure 100/60 05/23/2023 9:48 AM CDT Pulse 70 05/23/2023 9:48 AM CDT Temperature 36.8 C (98.2 F) 02/11/2023 11:25 PM FILTER MACHINE OPERATOR Respiratory Rate 16 02/11/2023 11:2 5 PM FILTER MACHINE OPERATOR Oxygen Saturation 98% 05/23/2023 9:48 AM CDT [...] 09/05/2024 4, 09/06/2023, 04/04/2019 (Completed outside of [facility]) Tdap Completed 10/06/2010 HPV series for age 9-26 Completed 04/13/19 12, 01/19/2011, 10/06/2010 HIV for age 15-65 Completed 05/23/2023 Hepatitis C screening for age 18-79 Completed 05/23/2023 Pneumococcal series for age 6-49 Aged Out No longer eligible based on patient's age to complete this topic Procedures Procedure Name Priority Date/Time Associated Diagnosis Comments GAS FITTER THIN PREP PAP SCREEN IMAGED Routine 09/06/2023 3:25 PM CDT ANTI HIV 1/2 Routine 05/23/2023 10:11 AM CDT Screen for STD (sexually transmitted disease) ANTI HCV Routine 05/23/2023 10:11 AM CDT Screen for STD (sexually transmitted disease) from Last 3 Months or Most Recently Relevant to Health Maintenance Results * GAS FITTER THIN PREP PAP SCREEN IMAGED (09/06/2023 3:25 PM CDT) Case Report Gynecologic Cytology Report Case: [id number] Authorizing Provider: Yodit Boss MD Collected: 09/06/2023 1525 Ordering Location: [facility] Received: 09/10/2023 1003 First Screen: Renato Burgos Specimen: GAS FITTER ThinPrep Vial Screening, Cervical 09/12/2023 3:00 PM CDT [facility] INTERPRETATION/ RESULT NEGATIVE FOR INTRAEPITHELIAL LESION OR MALIGNANCY (NIL) (none) 09/12/2023 3:00 PM CDT [facility] [employer] [facility] ENTRAL LABORATORY NISM(S) Shift in tashi suggestive of bacterial vaginosis 09/12/2023 3:00 PM CDT [employer] ENTRAL LABORATORY SPECIMEN ADEQUACY Satisfactory for evaluation Endocervical component present 09/12/2023 3:00 PM CDT [facility] HPV REQUEST HPV and PAP 09/12/2023 3:00 PM CDT [facility] Date of LMP 07/07/2023 09/12/2023 3:00 PM CDT [facility] Last Pap Date 09/12/2023 3:00 PM CDT [facility] Comment:2020 Last Pap Result NIL 3:00 PM CDT [facility] Abnormal Pap or [place] Bx in last 5 years No 09/12/2023 3:00 PM CDT [facility] [employer] ENTRAL LABORATORY Menstrual Status 09/12/2023 3:00 PM CDT [facility] [place] Bx Done Today No 09/12/2023 3:00 PM CDT [facility] Additional Information 09/12/2023 3:00 PM CDT [facility] [employer] ENTRAL LABORATORY Comment: Interpreted at [facility], Central Laboratory - [address], [place] [address] Automated Review Successful 09/12/2023 3:00 PM CDT [facility] ENTRAL LABORATORY Comment:Specimen processed s uccessfully by automated manager wound device, ThinPrep Imaging System, [employer] ANCILLARY TESTING GAS FITTER HPV Ordered, Please see separate report 09/12/2023 3:00 PM CDT [facility] Note The pap test [...] and malignant lesions. 09/12/2023 3:00 PM CDT [facility] Other (Cervical) 09/06/2023 3:25 PM CDT 09/10/2023 10:03 AM CDT Yodit Boss MD PATHOLOGY/CYTOLOGY Final Result Performing Organization Address [facility] Co de Phone Number [facility] [address] [place] [address], [place] * ANTI HCV (05/23/2023 10:11 AM CDT) HEPATITIS C ANTIBODY Non-Reacti ve Non-React manoj 05/23/2023 4:17 PM CDT [facility] TRAL LABORATORY Comment:Please note, per www [...] OUTS Final R esult Performing Organization Address City/[facility]/ZIP Co de Phone Number [facility] [address] [place] [address], [place] * ANTI HIV 1/2 (05/23/2023 10:11 AM CDT) HIV-1/HIV-2 SCREEN Non-Reacti ve Non-Reacti ve 05/23/2023 4:20 PM CDT [facility] TRAL LABORATORY Comment:HIV-1 p24 and HIV-1/ HIV-2 Ab Not Detected. Blood BLOOD SPECIMEN / Unknown Butterfly / Unknown 05/23/2023 10:11 AM CDT 05/23/2023 10:11 AM CDT us Sapphire Drake MD SEND OUTS Final R esult [facility] [address] [place] [address], from Last 3 Months or Most Recently Relevant to Health Maintenance Insurance [facility] [id number] [id number] [facility] [id number] [id number] * Guarantor: UNKNOWN Account Type Relation to [...] Code Status Discussion: Not Discussed Care Teams Mutual Funds Agent Relationship Specialty Start Date End Date Clinic, [facility] [address] [facility] [place] [address] PCP - General 07/24/21
--- OUTSIDE RECORDS SUMMARY | 2024-03-05 20:17 | XMS_ITS | Encounter Summary ---
Author Organization [facility] Address [address] [place] [address] Care Team Providers Care Flare Man Name Role Phone Jayson Saxena MD Primary Care Provider [phone] Encounter Details Date Type Department Care Team (Late st Contact Info) Description 12/26/2023 E-Visit [facility] [address] Maternal Medicine [address] [place] [address] Mychart, [place] [address] Social History Tobacco Use Types Packs/Day Years [...] on filedocumented in this encounter Care Teams Flare Man Relationship Specialty [place] [address] [place] [address] [place] [address] PCP - General Family Practice 08/06/22 documented as of this encounter
--- OUTSIDE RECORDS SUMMARY | 2024-03-05 20:17 | XMS_ITS | Encounter Summary ---
Author Organization [facility] Address [address], [place] [address] Care Team Providers Care Supply Room Clerk Name Role Phone Jayson Saxena MD Primary Care Provider Encounter Details Date Type Department Care Team (Late st Contact Info) Description 01/01/2024 E-Visit [facility]-RN QUALITY [id number] [place] [phone] Kate, [place] [address] Social History Tobacco Use Types Packs/Day Years [...] on filedocumented in this encounter Care Teams Supply Room Clerk Relationship Specialty [place] [address] [place] [address] PCP - General Family Practice 08/06/22 documented as of this encounter
--- OUTSIDE RECORDS SUMMARY | 2024-03-05 20:17 | XMS_ITS | Clinical Summary ---
Author Organization [employer] [facility] [facility] Address [address], [place] [address] Care Team Providers Care Tiger Machine Operator Name Role Phone Jayson Saxena MD Primary Care Provider [phone] Source Comments You are receiving this document as you are listed as the primary care provider,follow-up provider, or the patient has been referred to you for consultation.This is in compliance with the Medicare andPeoples Hospitalcaid EHR Incentive Program,which states Providers who transition their patient to another setting of careor provider of care or refers their patient to another provider of care shouldprovide summary care record for each transition of care or referral. [employer] Allergies Active Allergy Reactions Criticality Noted Date [...] DAY 90 Tablet 3 08/12/2022 Active Vit-Fe Ccc-LT-Omjkh (ONE-A-DAY WOMENS ) 28-0.8 & 223 MG [...] please contact Ruchi Valdovinos RN, [facility] Powerhouse Mechanic Supervisor, at [phone]. 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 Anxiety 08/01/2022 Mood disorder 08/01/2022 Borderline personality disorder 10/14/2019 Generalized anxiety disorder 01/21/2014 Estimated Date of Delivery Comme nts Yes 04/17/2024 Based on Ultraso und Resolved Problems Problem Noted Date Diagnosed Date Resolved Date Recurrent UTI 08/01/2022 01/30/2023 Encounters Date Type Department Care Team Description 01/13/2024 Notes/Orders [facility]-POLICE RESERVES COMMANDER [address] [place] [address], [address] [address] Ruchi Valdovinos RN Careplan: [facility] (Primary Dx) 01/01/2024 Telephone [facility]-POLICE RESERVES COMMANDER [id number] [place] [address], [address] [address] Gauri Macedo7 Patient Care Coordination 01/01/2024 E-Visit [facility]-POLICE RESERVES COMMANDER [id number] [place] [address], [address] [address] Mychart, Generic Provider 01/01/2024 Telephone [facility]-POLICE RESERVES COMMANDER [address] [place] [address], [address] [place] [address] Gauri Macedo Obg7 [facility] New Visit 12/26/2023 Telephone [facility] [place] [address] Branden Stokes MD 12/26/2023 E[facility]Visit [facility] [address] [place] [address] Mychart, Generic Provider 12/17/2023 Notes/Orders [facility]-POLICE RESERVES COMMANDER [address] [facility], [address] [place] [address] [facility] [place] Obg7 12/17/2023 E-Visit [facility] [address] [place] [address] Yobanit, Generic Provider 12/16/2023 Telephone [facility]-POLICE RESERVES COMMANDER [address] [facility], [address] [place] [address] Cyndi Jimenez APRN, CNP Follow-up 12/13/2023 8:15 AM CDT Initial [facility]-POLICE RESERVES COMMANDER [address] [facility], [address] [place] [address] Cyndi Jimenez APRN, CNP INITIAL VISIT 12/13/2023 E-Visit [facility] [address] [place] [address]. [place] [address] Mychart, Generic Provider from Last 3 Months [...] Formulation 08/14/2000, 1998,1998,1998 IPV (Polio) 07/21/2003 Influenza U3O5-64 02/14/2009 Influenza IIV4 (Quadrivalent ) 0.5mL (76650) 03/08/2016 Influenza LAIV3 2-49 years (Flumist) 12/05/2011, [...] age to complete this topic Care Teams Tiger Machine Operator Relationship Specialty [place] [address] [address] PCP - General Family Practice 08/06/22
[2024-03-05 20:35] VITALS: BP 100/56; PULSE 110; RESP 18; TEMP 37.1; O2SAT 97; BMI 27.2
[2024-03-05 21:11] VITALS: TEMP 36.4
[2024-03-05 21:12] VITALS: BP 118/76; PULSE 96
[2024-03-05 21:39] LABS: PCR FLU A Negative PCR FLU A (Negative); PCR FLU B Negative PCR FLU B (Negative); PCR RSV Negative PCR RSV (Negative); SARS PCR* POSITIVE SARS-CoV-2 (Negative)
[2024-03-05] MEDS: CYCLOBENZAPRINE HCL 10 MG TABLET PO (22:09)
--- NOTE | 2024-03-05 22:27 | PC.OBNST ---
NST Note NST Note Start: 03/05/24 21:10 Freq: ONCE Status: Active Protocol: Document 03/05/24 22:23 MMT (Rec: 03/05/24 22:27 MMT No Response) NST Note 1 Para (# of births) 0 EDC 04/19/24 Gestational Age In Weeks & Days 33 Weeks & 4 Days Patient Presented with Complaint(s) of Pain,Nausea and vomiting If Pain, describe location RUQ pain that radiates to the back Other Complaints Pt states that her pain in her RUQ has been lasting for the last 7 days and is continuing to get worse. She also is nauseous, vomiting, and has a non-productive cough. She was in the ED for the same issue on 03/03/2025. Reactive Yes Appropriate for Gestational Age Yes Tamie Jones Date 03/05/24 Reactive Yes Appropriate for Gestational Age Yes Mabel Joseph Date 03/05/24 OB NST charge Yes Complete NST Note via Write Note Yes The provider's electronic signature indicates the NST is reactive/appropriate for gestational age. *Note to provider: If an addendum is required, open the patient's chart and click on the note under the Nurse/Allied Health tab.
[2024-03-05 22:36] LABS: Total Protein Urine 6 mg/dL
[2024-03-05 22:37] LABS: Creatinine Urine 60.5 mg/dL
[2024-03-05 22:38] LABS: Hematocrit 33.7 % (33.0-51.0); Hemoglobin* 11.7 gm/dL (12.0-16.0); Mean Corpuscular HGB Conc 35 gm/dL (32-36); Mean Corpuscular Hemoglobin 32 pg (26-34); Mean Corpuscular Volume 93 fL (80-100); Platelet Count* 167 K/uL (140-440); Red Blood Count 3.61 m/uL (4.00-5.20); White Blood Count* 9.25 K/uL (4.50-11.00)
[2024-03-05 22:40] LABS: Alanine Aminotransferase* 22 U/L (4-35); Aspartate Amino Transferase* 22 U/L (12-35); Blood Urea Nitrogen* 17 mg/dL (5-24); Creatinine* 0.6 mg/dL (0.5-1.5); Est. Creatinine Clearance* 134.18; Estimated Glomerular Filt Rate 128 ml/min
[2024-03-05 22:41] LABS: Slide Review Reflex No
[2024-03-05 22:53] LABS: INR 0.93 (0.91-1.10); Prothrombin Time 13.1 Seconds
[2024-03-05 22:54] LABS: Partial Thromboplastin Time* 25 Seconds (23-33)
[2024-03-05 22:59] LABS: Uric Acid* 3.3 mg/dL (2.2-8.4)
[2024-03-05 23:02] LABS: Fibrinogen* 374 mg/dL (200-450)
== END 2024-03-05 22:20 | disposition home or self-care (01) ==
LOC: OB OUT 21:08 → OB 21:08
PROVIDERS: Visit Provider Advanced Practice Midwife
DX: O26.893 Other specified pregnancy related conditions, third trimester (principal); R10.11 Right upper quadrant pain; R11.2 Nausea with vomiting, unspecified; Z3A.33 33 weeks gestation of pregnancy
CPT/HCPCS: 36415; 59025; 82565; 82570; 84156; 84450; 84460; 84520; 84550; 85027; 85384; 85610; 85730; 87631; G0463; A9270

== ENCOUNTER 2024-03-05 22:21 | Emergency (ER) | payer OTHER, MEDICAID, SELFPAY ==
[2024-03-05] VITALS (9 sets, daily range): BP systolic 79–129; BP diastolic 43–72; PULSE 92–99; RESP 16; TEMP 36.5; O2SAT 96–98; BMI 27.2
--- OUTSIDE RECORDS SUMMARY | 2024-03-05 22:24 | XMS_ITS | Encounter Summary ---
Author Organization [facility] Address [address], [place] [address] Care Team Providers Care Air Tube Releaser Name Role Phone Jayson Saxena MD Primary Care Provider [phone] Encounter Details Date Type Department Care Team (Late st Contact Info) Description 01/01/2024 E-Visit [facility]-SENIOR COUNSEL [id number] [place] [address] Kate, [place] [address] Social History Tobacco Use Types Packs/Day Years [...] on filedocumented in this encounter Care Teams Air Tube Releaser Relationship Specialty [place] [address] [place] [address] PCP - General Family Practice 08/06/22 documented as of this encounter
--- OUTSIDE RECORDS SUMMARY | 2024-03-05 22:24 | XMS_ITS | Continuity of Care Document ---
Author Name NwHIN User [facility] Address Unknown Organization Unknown Address Unknown Procedures FILTER APPLIED:Only known Procedures with Onset Date within the last 5 years Procedure Date Procedure Provider Additiona l Information Status CT HEAD/BRAIN W/O DYE ([address]) [address] NECK SPINE W/O DYE (58921) Completed CRITICAL CARE FIRST HOUR (64491) Completed EMERGENCY DEPT VISIT MOD MDM (56254) Completed ELECTROCARDIOGRAM TRACING (14544) Completed CANALITH REPOSITIONING PROC (08841) Completed Encounters FILTER APPLIED:Only known Encounters with Admission Date within the last 5 years Encounter Location Admission Discharge Billing Code Graphic Technician Jen shay Emergency [facility]
--- OUTSIDE RECORDS SUMMARY | 2024-03-05 22:24 | XMS_ITS | Clinical Summary ---
Author Organization [facility] Address [place], [place] [address] Care Team Providers Care Hair Or Beauty Salon Manager Name Role Phone Clinic, [facility] Primary Care Pro vider Allergies Active [...] Overview (04/27/2021): Buspar 2020 cymbalta 2020 lexapro [phone] prozac 2015 Celexa 2014 Hydrozyzine 2015 Mirtazepine [...] = 0.6 oz pur e alcohol) rarely [facility] Utilities Answer Date Recorded Do you have [...] Sex Assigned at Female 05/02/2021 7:39 AM PHYSICIAN NON INVASIVE CARDIOLOGIST Legal Sex Female 8:37 AM CDT Gender Identity Female 05/02/2021 7:39 AM PHYSICIAN NON INVASIVE CARDIOLOGIST Sexual Orientation Bisexual 05/02/2021 7: 39 AM PHYSICIAN NON INVASIVE CARDIOLOGIST 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 Not on file Not on file Not on file Obstetrics History Last Filed Vital Signs Vital Sign Reading Time Taken Comments Blood Pressure 100/60 05/23/2023 9:48 AM CDT Pulse 70 05/23/2023 9:48 AM CDT Temperature 36.8 C (98.2 F) 02/11/2023 11:25 PM PHYSICIAN NON INVASIVE CARDIOLOGIST Respiratory Rate 16 02/11/2023 11:2 5 PM PHYSICIAN NON INVASIVE CARDIOLOGIST Oxygen Saturation 98% 05/23/2023 9:48 AM CDT [...] 09/05/2024 4, 09/06/2023, 04/04/2019 (Completed outside of [facility]) Tdap Completed 10/06/2010 HPV series for age 9-26 Completed 04/13/19 12, 01/19/2011, 10/06/2010 HIV for age 15-65 Completed 05/23/2023 Hepatitis C screening for age 18-79 Completed 05/23/2023 Pneumococcal series for age 6-49 Aged Out No longer eligible based on patient's age to complete this topic Procedures Procedure Name Priority Date/Time Associated Diagnosis Comments JOB MOLDER THIN PREP PAP SCREEN IMAGED Routine 09/06/2023 3:25 PM CDT ANTI HIV 1/2 Routine 05/23/2023 10:11 AM CDT Screen for STD (sexually transmitted disease) ANTI HCV Routine 05/23/2023 10:11 AM CDT Screen for STD (sexually transmitted disease) from Last 3 Months or Most Recently Relevant to Health Maintenance Results * JOB MOLDER THIN PREP PAP SCREEN IMAGED (09/06/2023 3:25 PM CDT) Case Report Gynecologic Cytology Report Case: [id number] Authorizing Provider: Yodit Boss MD Collected: 09/06/2023 1525 Ordering Location: [facility] Received: 09/10/2023 1003 First Screen: Renato Burgos Specimen: JOB MOLDER ThinPrep Vial Screening, Cervical 09/12/2023 3:00 PM CDT [facility] INTERPRETATION/ RESULT NEGATIVE FOR INTRAEPITHELIAL LESION OR MALIGNANCY (NIL) (none) 09/12/2023 3:00 PM CDT [facility] [employer] [facility] ENTRAL LABORATORY NISM(S) Shift in tashi suggestive of bacterial vaginosis 09/12/2023 3:00 PM CDT [facility] ENTRAL LABORATORY SPECIMEN ADEQUACY Satisfactory for evaluation Endocervical component present 09/12/2023 3:00 PM CDT [facility] HPV REQUEST HPV and PAP 09/12/2023 3:00 PM CDT [facility] Date of LMP 07/07/2023 09/12/2023 3:00 PM CDT [facility] Last Pap Date 09/12/2023 3:00 PM CDT [facility] Comment:2020 Last Pap Result NIL 3:00 PM CDT [facility] Abnormal Pap or Colbert Bx in last 5 years No 09/12/2023 3:00 PM CDT [facility] [employer] ENTRAL LABORATORY Menstrual Status 09/12/2023 3:00 PM CDT [facility] Colbert Bx Done Today No 09/12/2023 3:00 PM CDT [facility] Additional Information 09/12/2023 3:00 PM CDT [facility] [employer] ENTRAL LABORATORY Comment: Interpreted at [employer], Central Laboratory - [address], [place] [address] Automated Review Successful 09/12/2023 3:00 PM CDT [facility] LABOR[facility] Comment:Specimen processed s uccessfully by automated national van owner operator device, ThinPrep Imaging System, [employer] ANCILLARY TESTING JOB MOLDER HPV Ordered, Please see separate report 09/12/2023 3:00 PM CDT [facility] Note The pap test is a [...] and malignant lesions. 09/12/2023 3:00 PM CDT [facility] Other (Cervical) 09/06/2023 3:25 PM CDT 09/10/2023 10:03 AM CDT Yodit Boss MD PATHOLOGY/CYTOLOGY Final Result Performing Organization Address [facility] Co de Phone Number [facility] [address] [place] [address], [place] * ANTI HCV (05/23/2023 10:11 AM CDT) HEPATITIS C ANTIBODY Non-Reacti ve Non-React manoj 05/23/2023 4:17 PM CDT [facility] TRAL LABORATORY Comment:Please note, per www [...] OUTS Final R esult Performing Organization Address City/[facility]/ZIP Co de Phone Number [facility] [address] [place] [address], [place] * ANTI HIV 1/2 (05/23/2023 10:11 AM CDT) HIV-1/HIV-2 SCREEN Non-Reacti ve Non-Reacti ve 05/23/2023 4:20 PM CDT [facility] TRAL LABORATORY Comment:HIV-1 p24 and HIV-1/ HIV-2 Ab Not Detected. Blood BLOOD SPECIMEN / Unknown Butterfly / Unknown 05/23/2023 10:11 AM CDT 05/23/2023 10:11 AM CDT us Sapphire Drake MD SEND OUTS Final R esult [facility] [address] [place] [address], from Last 3 Months or Most Recently Relevant to Health Maintenance Insurance [facility] [id number] [id number] [facility] [id number] [id number] * Guarantor: UNKNOWN Account Type Relation to [...] Code Status Discussion: Not Discussed Care Teams Hair Or Beauty Salon Manager Relationship Specialty Start Date End Date Clinic, [facility] [address] [facility] [place] [address] PCP - General 07/24/21
--- OUTSIDE RECORDS SUMMARY | 2024-03-05 22:24 | XMS_ITS | Clinical Summary ---
Author Organization [facility] Address [address], [place] [address] Care Team Providers Care Reconditioning Associate Name Role Phone Jayson Saxena MD Primary Care Provider [phone] Source Comments You are receiving this document as you are listed as the primary care provider,follow-up provider, or the patient has been referred to you for consultation.This is in compliance with the Medicare andAv[facility] Health System [facility] Hospitalcaid EHR Incentive Program,which states Providers who transition their patient to another setting of careor provider of care or refers their patient to another provider of care shouldprovide summary care record for each transition of care or referral. [employer] Allergies Active Allergy Reactions Criticality Noted Date [...] DAY 90 Tablet 3 08/12/2022 Active Vit-Fe Iqw-GA-Yigbv (ONE-A-DAY WOMENS ) 28-0.8 & 223 MG [...] please contact Ruchi Valdovinos RN, [facility] Disassembler Product, at [phone]. Recurrent candidiasis of vagina 12/17/2023 Supervision of high risk in [facility] 12/17/2023 Fibromyalgia 12/17/2023 Not [...] Type Department Care Team Description 01/13/2024 Notes/Orders [facility]-PIECE WORKER [address] [place] [address], [address] [address] Ruchi Valdovinos RN Careplan: [facility] (Primary Dx) 01/01/2024 Telephone [facility]-PIECE WORKER [id number] [place] [address], [address] [address] Gauri Macedo7 Patient Care Coordination 01/01/2024 E-Visit [facility]-PIECE WORKER [address] [place] [address], [address] [address] Mychart, Generic Provider 01/01/2024 Telephone [facility]-PIECE WORKER [address] [place] [address], [address] [place] [address] Gauri Macedo Obg7 [facility] New Visit 12/26/2023 Telephone [facility] [address] [place] [address] Branden Stokes MD 12/26/2023 E-Visit [facility] [address] [place] [address] Mychart, Generic Provider 12/17/2023 Notes/Orders [facility]-PIECE WORKER [address] [facility], [address] [place] [address] [facility] [place] Obg7 12/17/2023 E-Visit [facility] [address] [place] [address] Yobanit, Generic Provider 12/16/2023 Telephone [facility]-PIECE WORKER [address] [facility], [address] [place] [address] Cyndi Jimenez APRN, CNP Follow-up 12/13/2023 8:15 AM CDT Initial [facility] Services-PIECE WORKER [address] [facility], [address] [place] [address] Cyndi Jimenez APRN, CNP INITIAL VISIT 12/13/2023 [facility]Visit [facility] [address] [place] [address]. [place] [address] Mychart, Generic Provider from Last 3 Months [...] Formulation 08/14/2000, 1998,1998,1998 IPV (Polio) 07/21/2003 Influenza L8D2-43 02/14/2009 Influenza IIV4 (Quadrivalent ) 0.5mL (36856) 03/08/2016 Influenza LAIV3 2-49 years (Flumist) 12/05/2011, [...] age to complete this topic Care Teams Reconditioning Associate Relationship Specialty [place] [address] [place] [address] PCP - General Family Practice 08/06/22
--- OUTSIDE RECORDS SUMMARY | 2024-03-05 22:24 | XMS_ITS | Encounter Summary ---
Author Organization [facility] Address [address] [place] [address] Care Team Providers Care Metal Stamper Name Role Phone Jayson Saxena MD Primary Care Provider [phone] Encounter Details Date Type Department Care Team (Late st Contact Info) Description 12/26/2023 E-Visit [facility] [address] [place] [address] Mychart, [place] [address] Social History Tobacco Use Types Packs/Day Years [...] on filedocumented in this encounter Care Teams Metal Stamper Relationship Specialty [place] [address] [place] [address] PCP - General Family Practice 08/06/22 documented as of this encounter
--- OUTSIDE RECORDS SUMMARY | 2024-03-05 22:33 | XMS_ITS | Continuity of Care Document ---
Author Name NwHIN User [employer] Address Unknown Organization Unknown Address Unknown Procedures FILTER APPLIED:Only known Procedures with Onset Date within the last 5 years Procedure Date Procedure Provider Additiona l Information Status CT HEAD/BRAIN W/O DYE (56457) Completed CT NECK SPINE W/O DYE (95501) Completed CRITICAL CARE FIRST HOUR (93086) Completed EMERGENCY DEPT VISIT MOD MDM (36623) Completed ELECTROCARDIOGRAM TRACING (98163) Completed CANALITH REPOSITIONING PROC (36989) Completed Encounters FILTER APPLIED:Only known Encounters with Admission Date within the last 5 years Encounter Location Admission Discharge Billing Code Food Safety Field Specialist Jen shay Emergency [facility]
--- NOTE | 2024-03-05 22:37 | CRLHL7_ITS ---
For Patients: As a result of the Century Cures Act, medical imaging exams and procedure reports are released immediately into your electronic medical record. You may view this report before your referring provider. If you have questions, please contact your health care provider. INDICATION: RT SIDED ABD PAIN X 7 DAYS. N/V. RT SIDED KIDNEY ENLARGED SEEN ONUS DONE 03/03/24 PT 34 WEEKS . TECHNIQUE: CT abdomen and pelvis acquired with 92 cc Isovue 370 IV contrast. COMPARISON: None. FINDINGS: Lower chest: Unremarkable. Liver: Unremarkable. Normal in size and attenuation. No suspicious masses. Gallbladder and bile ducts: Unremarkable. No stones or inflammation. No biliary dilatation. Pancreas: Unremarkable. No mass or inflammation. Spleen: Unremarkable. Normal in size. No masses. Adrenal glands: Unremarkable. No nodules. Kidneys: Moderate right-sided hydronephrosis and hydroureter. The ureter appears to be compressed between the gravid uterus and right psoas in the right lower quadrant. No renal or ureteral stones identified. No left hydronephrosis or hydroureter. GI tract: Above average colonic stool volume. Appendix is not visualized. No bowel obstruction. Vasculature: Abdominal aorta is normal in caliber. Mesenteric arteries are patent. Lymph nodes: No lymphadenopathy. Peritoneum/Abdominal Wall: Unremarkable. No sign of mass or infiltration. No free air or significant free fluid. Pelvis: Gravid uterus. Fetus is in cephalic position. Placenta is posterior fundal. Bladder is unremarkable Bones: Unremarkable for age. IMPRESSION: Compression of the right distal ureter between the uterus and right psoas contributing to proximal moderate hydroureteronephrosis. No renal or ureteral stones identified. No acute intra-abdominal process identified.. Please note that all CT scans at this facility use dose modulation, iterative reconstruction, and/or weight-based dosing when appropriate to reduce radiation dose to as low as reasonably achievable. Dictated by Ioana Hollins MD @ 03/06/2024 12:35:11 AM (Electronically Signed)
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
== END 2024-03-06 01:13 | disposition home or self-care (01) ==
PROVIDERS: Emergency Provider Student in an Organized Health Care Education/Training Program
DX: N13.2 Hydronephrosis with renal and ureteral calculous obstruction (principal); U07.1 COVID-19
CPT/HCPCS: 74177; 87040; 99284; Q9967

== ENCOUNTER 2024-03-12 13:59 | Outpatient (CLI) | payer OTHER, MEDICAID, SELFPAY ==
[2024-03-12 14:10] VITALS: PULSE 119; O2SAT 97
[2024-03-12 14:13] VITALS: TEMP 36.5
[2024-03-12 14:14] VITALS: BP 123/81; PULSE 95
[2024-03-12] MEDS: polyethylene glycoL 3350 17 GM PACK PO (15:30)
--- NOTE | 2024-03-12 16:09 | P.OBLDTN_ITS ---
OB - Triage/Final Diagnosis Visit Information Date Seen: 03/12/24 Narrative: The patient is a 23 year old 2 para 0 at 34.4 weeks gestation by first trimester ultrasound, who presents with right upper quadrant pain. She reports throughout the day her pain is on the right under the ribs and sometimes wraps around to her back. She rates her pain during the day a 2-3/10 but at night then the pain is worse and sometimes a 10/10. She feels this pain is worse if she eats or drinks too much so she is eating small amounts and not drinking large amounts of water. She has been seen in the ED twice in the last week for this pain and the only abnormal findings were right kidney hydronephrosis. Of note, there was above average colonic stool volume seen on her CT. She was prescribed Flexeril for discomfort but she cannot take this during the day as it makes her very sleepy and she can't function, she is allergic to acetaminophen. She is having daily soft BMs, small to moderate amounts, taking Colace gummies BID but feels it is difficult to pass stool and it takes a long time to pass. She denies contractions, leaking of fluid,vaginal discharge or bleeding and reports + movement. Comments/Additional reasons for admission: Discussed patient with OB operations advisor, symptoms are more consistent with constipation and recent CT has ruled out other potential diagnosis. Will check CBC for white count and if normal patient can discharge home and try laxative or enema. If worsening of symptoms should return for evaluation. Evaluation Laboratory results: Laboratory Tests 03/12/24 Range/Units 15:28 WBC Pending RBC Pending Hgb Pending Hct Pending MCV Pending MCH Pending MCHC Pending Plt Count Pending Neut % (Auto) Pending Lymph % (Auto) Pending [place] % (Auto) Pending Eos % (Auto) Pending Baso % (Auto) Pending Neut # (Auto) Pending Lymph # (Auto) Pending [place] # (Auto) Pending Eos # (Auto) Pending Baso # (Auto) Pending Vital signs: Vital Signs - 24 hr 03/12/24 14:10 03/12/24 14:13 03/12/24 14:14 Temperature 97.7 F Pulse Rate 95 Blood Pressure 123/81 Pulse Oximetry 97 Comments: VSS? General Appearance:? Alert,?appropriate appearance?for age. No acute distress? HEENT Exam:? Grossly?normal.? Chest/Respiratory Exam: Normal respiratory effort, symmetrical chest wall rise. ? Gastrointestinal Exam: tender in right upper quadrant and along left side of abdominal wall, especially left lower quadrant,? no rebound tenderness. Not tender in right lower quadrant. Gravid, soft??? Musculoskeletal Exam: Back is straight and non-tender, full ROM of upper and lower extremities.? Skin: no rash or abnormalities? Neurologic Exam: Normal gait and speech, no tremor.? Psychiatric Exam: Alert and oriented, appropriate affect.??? One contraction seen on monitor, reactive NST. Fetus (Single) Heart Rate Baseline: 135 [place] [employer] Variability: Moderate (6-25) Monitor Accelerations: Present Monitor Decelerations: None Final Diagnosis (1) Constipation during : Status: Acute
[2024-03-12 16:15] LABS: Basophils Absolute Auto 0.02 K/uL (0.00-0.30); Basophils Percent Auto 0.2 % (0.0-3.0); Eosinophils Absolute Auto 0.13 K/uL (0.00-0.50); Eosinophils Percent Auto 1.2 % (0.0-7.0); Hemoglobin* 12.2 gm/dL (12.0-16.0); Immature Granulocytes Abs Auto 0.21 K/uL (0.00-0.30); Immature Granulocytes Pct Auto 1.9 %; Lymphocytes Percent Auto 14.3 % (20-44); Mean Corpuscular HGB Conc 35 gm/dL (32-36); Mean Corpuscular Hemoglobin 32 pg (26-34); Mean Corpuscular Volume 92 fL (80-100); Monocytes Percent Auto 5.8 % (0.0-11.0); Neutrophils Percent Auto 76.6 % (42.0-72.0); Platelet Count* 187 K/uL (140-440); RDW Coefficient of Variation % 12.8 % (11.5-15.5); White Blood Count* 10.93 K/uL (4.50-11.00)
[2024-03-12 16:16] LABS: Slide Review Reflex No
--- NOTE | 2024-03-12 16:37 | PC.OBNST ---
NST Note NST Note Start: 03/12/24 14:16 Freq: ONCE Status: Active Protocol: Document 03/12/24 16:34 NONDENOMINATIONAL (Rec: 03/12/24 16:36 NONDENOMINATIONAL [id number]) NST Note 2 Para (# of births) 0 EDC 04/19/24 Gestational Age In Weeks & Days 34 Weeks & 4 Days Patient Presented with Complaint(s) of Nausea and vomiting,Other If Pain, describe location Right mid upper quad pain that wraps to back. Reactive Yes Appropriate for Gestational Age Yes NONA Roberts Date 03/12/24 Reactive Yes Appropriate for Gestational Age Yes NONA Desouza Date 03/12/24 OB NST charge Yes Complete NST Note via Write Note Yes The provider's electronic signature indicates the NST is reactive/appropriate for gestational age. *Note to provider: If an addendum is required, open the patient's chart and click on the note under the Nurse/Allied Health tab.
== END 2024-03-12 16:26 | disposition home or self-care (01) ==
LOC: OB OUT 14:00 → OB 14:00
PROVIDERS: Visit Provider Advanced Practice Midwife
DX: O26.893 Other specified pregnancy related conditions, third trimester (principal); R10.11 Right upper quadrant pain; R11.2 Nausea with vomiting, unspecified; Z3A.34 34 weeks gestation of pregnancy
CPT/HCPCS: 36415; 59025; 85025; G0463; A9270

== ENCOUNTER 2024-03-18 10:12 | Outpatient (CLI) | payer OTHER, MEDICAID, SELFPAY | END 2024-03-18 10:13 | disposition home or self-care (01) | LOC: NFLDREF 10:12 | PROVIDERS: Visit Provider Midwife | DX: O99.283 Endocrine, nutritional and metabolic diseases complicating pregnancy, third trimester (principal); E03.8 Other specified hypothyroidism; Z3A.35 35 weeks gestation of pregnancy | CPT/HCPCS: 84443 ==

== ENCOUNTER 2024-03-24 12:04 | Outpatient (CLI) | payer OTHER, MEDICAID, SELFPAY ==
[2024-03-24 15:38] LABS: Chlamydia DNA Amplified* NOT DETECTED (No Detected); GC DNA Amplified* NOT DETECTED (No Detected)
== END 2024-03-24 12:05 | disposition home or self-care (01) ==
LOC: NFLDREF 12:04
PROVIDERS: Visit Provider Midwife
DX: Z34.83 Encounter for supervision of other normal pregnancy, third trimester (principal); N89.8 Other specified noninflammatory disorders of vagina
CPT/HCPCS: 87081; 87491; 87591; 87653

== ENCOUNTER 2024-04-03 12:21 | Outpatient (CLI) | payer OTHER, MEDICAID, SELFPAY ==
[2024-04-03 12:33] VITALS: BP 121/77; PULSE 92
[2024-04-03 12:51] VITALS: BP 118/76; PULSE 82
[2024-04-03 13:05] VITALS: BP 124/74; PULSE 86
[2024-04-03 13:23] LABS: Amnisure Rom* Negative
[2024-04-03 13:40] LABS: Hematocrit* 35.7 % (33.0-51.0); Hemoglobin* 12.3 gm/dL (12.0-16.0); Mean Corpuscular HGB Conc 35 gm/dL (32-36); Mean Corpuscular Hemoglobin 32 pg (26-34); Mean Corpuscular Volume 93 fL (80-100); Platelet Count* 167 K/uL (140-440); Red Blood Count* 3.83 m/uL (4.00-5.20); White Blood Count* 10.76 K/uL (4.50-11.00)
[2024-04-03 13:48] LABS: Slide Review Reflex No
[2024-04-03 13:58] LABS: Alanine Aminotransferase* 16 U/L (4-35); Aspartate Amino Transferase* 23 U/L (12-35); Blood Urea Nitrogen* 14 mg/dL (5-24); Creatinine* 0.5 mg/dL (0.5-1.5); Estimated Glomerular Filt Rate 133 ml/min
[2024-04-03 14:15] LABS: Clue Cells No Clue Cells Seen (None Seen); Trichomonas No Trichomonas Seen (None Seen); Yeast No Yeast Seen (None Seen)
[2024-04-03 14:19] LABS: Total Protein Urine 6 mg/dL
[2024-04-03 14:20] LABS: Creatinine Urine 51.1 mg/dL; Protein Creatinine Ratio Urine 0.12 (0-0.19)
--- NOTE | 2024-04-03 16:04 | PC.OBNST ---
NST Note NST Note Start: 04/03/24 12:22 Freq: ONCE Status: Active Protocol: Document 04/03/24 15:00 PORTC (Rec: 04/03/24 15:51 PORTC Desktop) NST Note 2 Para (# of births) 0 EDC 04/19/24 Gestational Age In Weeks & Days 37 Weeks & 5 Days Patient Presented with Complaint(s) of Leaking fluid,Decreased movement,Other Other Complaints Swelling, right-sided epigastric pain Reactive Yes Appropriate for Gestational Age Yes RN Tristen Gonzalez RNC Date 04/03/24 Reactive Yes Appropriate for Gestational Age Yes NONA Muniz RN Date 04/03/24 OB NST charge Yes Complete NST Note via Write Note Yes The provider's electronic signature indicates the NST is reactive/appropriate for gestational age. *Note to provider: If an addendum is required, open the patient's chart and click on the note under the Nurse/Allied Health tab.
== END 2024-04-03 15:15 | disposition home or self-care (01) ==
LOC: OB OUT 12:21 → OB 12:22
PROVIDERS: Visit Provider Advanced Practice Midwife
DX: O47.1 False labor at or after 37 completed weeks of gestation (principal); O36.8130 Decreased fetal movements, third trimester, not applicable or unspecified; Z3A.37 37 weeks gestation of pregnancy
CPT/HCPCS: 36415; 59025; 82565; 82570; 84112; 84156; 84450; 84460; 84520; 85027; 87210; G0463

== ENCOUNTER 2024-04-09 23:15 | Outpatient (CLI) | payer OTHER, MEDICAID, SELFPAY ==
[2024-04-09 23:29] VITALS: BP 123/77; PULSE 73; TEMP 36.5
[2024-04-09 23:49] LABS: Amnisure Rom* Negative
[2024-04-10] MEDS: MORPHINE 10 MG/ML inj IM (00:24)
[2024-04-10] MEDS: hydrOXYzine pamoate 25 MG CAPSULE 100 MG PO (00:24)
--- NOTE | 2024-04-13 01:48 | PC.OBNST ---
NST Note NST Note Start: 04/09/24 23:48 Freq: Status: Discharge Protocol: Document 04/10/24 00:40 ABEL (Rec: 04/10/24 00:41 ABEL [id number]) NST Note 2 Para (# of births) 0 EDC 04/19/24 Gestational Age In Weeks & Days 38 Weeks & 5 Days Patient Presented with Complaint(s) of Contractions/cramping Reactive Yes Appropriate for Gestational Age Yes RN Phill RN Date 04/09/24 Reactive Yes Appropriate for Gestational Age Yes RN Benny RN Date 04/09/24 OB NST charge Yes Complete NST Note via Write Note Yes The provider's electronic signature indicates the NST is reactive/appropriate for gestational age. *Note to provider: If an addendum is required, open the patient's chart and click on the note under the Nurse/Allied Health tab.
--- NOTE | 2024-04-16 19:37 | PC.OBNST ---
NST Note NST Note Start: 04/09/24 23:48 Freq: Status: Discharge Protocol: Document 04/10/24 00:40 ABEL (Rec: 04/10/24 00:41 ABEL [id number]) NST Note 2 Para (# of births) 0 EDC 04/19/24 Gestational Age In Weeks & Days 38 Weeks & 5 Days Patient Presented with Complaint(s) of Contractions/cramping Reactive Yes Appropriate for Gestational Age Yes RN Phill RN Date 04/09/24 Reactive Yes Appropriate for Gestational Age Yes RN Benny RN Date 04/09/24 OB NST charge Yes Complete NST Note via Write Note Yes The provider's electronic signature indicates the NST is reactive/appropriate for gestational age. *Note to provider: If an addendum is required, open the patient's chart and click on the note under the Nurse/Allied Health tab.
== END 2024-04-10 00:33 | disposition home or self-care (01) ==
LOC: OB OUT 23:15 → OB 23:16
PROVIDERS: Visit Provider Midwife
DX: O47.1 False labor at or after 37 completed weeks of gestation (principal); Z3A.38 38 weeks gestation of pregnancy
CPT/HCPCS: 59025; 84112; G0463; A9270; J2270

== ENCOUNTER 2024-04-11 20:59 | Inpatient (IN) | payer OTHER, MEDICAID, SELFPAY ==
[2024-04-11 20:29] VITALS: BP 138/81; PULSE 93; PULSE 95; RESP 16; TEMP 36.4; O2SAT 98
[2024-04-11 20:38] VITALS: BP 133/80; PULSE 86
[2024-04-11 20:53] LABS: Amnisure Rom* POSITIVE
[2024-04-11 21:01] VITALS: BMI 29.8
[2024-04-11 21:10] VITALS: RESP 16; TEMP 36.5
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
[2024-04-11 21:55] VITALS: TEMP 36.6
[2024-04-11 22:47] VITALS: BP 119/82; PULSE 112; RESP 20; O2SAT 97
[2024-04-11 23:51] VITALS: BP 113/72; PULSE 95; RESP 18; TEMP 36.8; O2SAT 97
[2024-04-12] VITALS (62 sets, daily range): BP systolic 86–162; BP diastolic 46–84; PULSE 80–115; RESP 16–20; TEMP 36.4–37.3; O2SAT 96–100
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
[2024-04-12] MEDS: fentaNYL 100 MCG/2 ML inj 50 MCG IVP ×2 (01:40→02:04)
[2024-04-12] MEDS: PHENYLEPHRINE 100 MCG/ML SYRINGE IVP ×3 (02:54→03:35)
[2024-04-12] MEDS: ePHEDrine sulfate 5 MG/ML inj 10 MG IVP ×2 (03:22→03:35)
[2024-04-12] MEDS: LACTATED RINGERS 1000 ML 1,000 ML 1200 ML IV ×2 (04:21→06:35)
[2024-04-12 04:26] LABS: Basophils Percent Auto 0.1 % (0.0-3.0); Eosinophils Percent Auto 0.2 % (0.0-7.0); Hematocrit 35.5 % (33.0-51.0); Hemoglobin* 12.6 gm/dL (12.0-16.0); Lymphocytes Percent Auto 8.3 % (20-44); Mean Corpuscular HGB Conc 36 gm/dL (32-36); Mean Corpuscular Hemoglobin 33 pg (26-34); Mean Corpuscular Volume 92 fL (80-100); Monocytes Percent Auto 5.5 % (0.0-11.0); Neutrophils Percent Auto 85.3 % (42.0-72.0); Platelet Count* 196 K/uL (140-440); Red Blood Count 3.87 m/uL (4.00-5.20); Slide Review Reflex No; White Blood Count* 20.79 K/uL (4.50-11.00)
[2024-04-12] MEDS: OXYTOCIN 30 unit/500 ML in NS 30 UNIT/500 ML BAG IVPB (07:29)
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
--- NOTE | 2024-04-12 09:07 | W.PM.OBVAGDE ---
OB Procedure Vag Delivery Mother Details Mother Details: The patient is a 24 year-old, 2, now Para 1011, admitted on 04/11/24 at 38.6 Days gestation. Admission Date: 04/11/24 Additional Details Amniotic Membrane Status: SROM Amniotic Membrane Rupture Date: 04/11/24 Amniotic Membrane Rupture Time: 18:55 Amniotic Membrane Fluid Description: Clear Analgesia/Anesthesia Type: Epidural, Fentanyl and Nitrous Oxide Waterbirth: No Pitcoin: Yes Intrapartal Events: Labor Augmentation Labor Onset: 21:21 Complete: 07:10 Pushin:14 Heart: heart tones during second stage were category 2 with variables and periods of decreased variability. Treated conservatively with success. Delivery Details Delivery Date: 04/12/24 Delivery Time: 08:36 Gender: Female Infant Viability: Alive; Heart Rate Present Position at Delivery: OA Delivery Details: Patient was admitted for SROM and progressed slowly, so was augmented. SROM noted at 1855 04/11/2024 with clear fluid. Patient was complete at 0710 and pushing at 0714. of a viable female at 0836 in semifowlers. Vertex delivered OA. No nuchal cord or shoulder. Body delivered easily and without incident. passed to mothers abdomen with a vigorous cry. Cord was clamped and cut at > 5 minutes. APGARS were 8 at one minute and 9 at five minutes respectively. Mouth was bulb suctioned. Intact placenta with a 3 vessel cord delivered spontaneously at . Fundus firm. No lacerations identified. QBL 15 cc. Mother and baby stable; mother plans to breastfeed. weight pending.? 1 Minute Interval Total Score: 8 5 Minute Interval Total Score: 9 Additional Details Shoulder Dystocia: No Placenta Delivery Time: 08:44 Placental Delivery Description: Spontaneous Procedure Done: Global Blood Loss: 15 Laceration: None Episiotomy Description: None Blood Loss Measurement Type: QBL Bakri Used: No Sponge/Need Count Correct: Yes Cord Vessel Description: 3 Vessels and Clamped/Cut Event Summary Status: Mother and infant were stable after delivery. Disposition: floor
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
--- NOTE | 2024-04-12 12:39 | PM.ANPOST ---
Post Anesthesia Note Post Anesthesia Note Patient seen: Inpatient Respiratory Status: adequate Cardiovascular Status: adequate Mental Status: baseline Pain: adequate Temp: baseline Anesthetic awareness: N/A Complications: none Follow care: none
[2024-04-12] MEDS: IBUPROFEN 600 MG TABLET PO (21:17)
[2024-04-13 04:30] VITALS: BP 117/64; PULSE 72; RESP 16; TEMP 36.6; O2SAT 97
[2024-04-13 06:45] LABS: Hemoglobin* 12.2 gm/dL (12.0-16.0)
[2024-04-13] MEDS: LEVOTHYROXINE 100 MCG TABLET PO (08:31)
[2024-04-13] MEDS: DOCUSATE SODIUM 100 MG CAPSULE PO (08:32)
[2024-04-13 08:45] VITALS: BP 124/82; PULSE 70; RESP 16; TEMP 36.7; O2SAT 98
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
[2024-04-13] MEDS: IBUPROFEN 600 MG TABLET PO (18:00)
[2024-04-13 19:30] VITALS: BP 111/75; PULSE 77; RESP 14; TEMP 36.4; O2SAT 98
[2024-04-14 01:01] VITALS: BP 111/74; PULSE 78; RESP 18; TEMP 36.3
[2024-04-14] MEDS: IBUPROFEN 600 MG TABLET PO ×2 (01:10→06:34)
[2024-04-14] MEDS: LEVOTHYROXINE 100 MCG TABLET PO (06:34)
--- NOTE | 2024-04-14 07:59 | PM.OBDSVD1 ---
DS: Providers Provider Date Seen: 04/14/24 Date of admission: 04/11/24 20:59 Primary care physician: Not a Local Provider Admitting Clinician: Lisa Melara CNM Attending Physician on discharge: Carlito Ng CNM Date of Discharge: 04/14/24 DS: Diagnosis Discharge Diagnosis (1) care and examination immediately after delivery: Status: Acute (2) Lactating mother: Status: Acute (3) Subclinical hypothyroidism: Status: Acute Exam Narrative: Exam Narrative: VSS, afebrile GENERAL APPEARANCE: ?normal affect, alert, no distress MOOD: ?appropriate HEENT: normocephalic, neck supple, full ROM CHEST: ?Symmetrical chest wall movement. ?Normal respiratory effort. ?Clear to auscultation HEART: ?regular rate and rhythm ABDOMEN: ?soft, non-tender. Uterine fundus is firm, at Umbilicus, Midline and is appropriate for the stage of recovery. ?Bowel sounds present. PERINEUM: ?intact .EXTREMITIES: ?normal and no edema Const: Vital Signs, click to edit/add: Vital Signs - 24 hr 04/13/24 08:45 04/13/24 19:30 04/14/24 01:01 Temperature 98.0 F 97.6 F 97.4 F L Pulse Rate [Pulse Oximeter] 70 77 78 Respiratory Rate 16 14 18 Blood Pressure [Le ft Arm] 124/82 111/75 111/74 Pulse Oximetry 98 98 Oxygen Delivery Me thod Room Air Room Air Documenting provider has reviewed patient's vital signs: yes OB - DS: Summary Hospital Course Hospital Course: Rosario is a 24 y.o. who was admitted to L & D for labor. ?She had an uncomplicated NVD.?The patient feels well. ?The pain is well controlled with current medications. ?She has no new complaints. ?She is breast feeding and reports things are going ok, she had tried formula but is concerned that baby had a reaction to the formula so planning to continue with breast feeding ? the patient has done well.? Vitals have been stable.? She has remained afebrile.? Has a good appetite, is tolerating a general diet. ?She is voiding without difficulty.? She is passing gas and has not had a bowel movement.? She is ambulating and denies any dizziness.? Has Small amount of rubra lochia. ?She is planning nothing for prevention. Peripartum Data delivery method: Vaginal Laceration description: None Gender: Female Discharge Plan: Home Status at Discharge Functional status at discharge: independent ambulation Overall status at discharge: patient is progressing back to baseline Time Spent with Patient Time attestation: Total time spent providing and/or coordinating discharge services: Time spent: Less than 30 minutes Discharge Plan Discharge Disposition: Home, Self-Care Date of Admission: 04/11/24 20:59 Attending Provider on Discharge: Carlito Ng Primary Care Provider: Provider,Not a Local Condition: Stable Anticipated Discharge Date/Time: 04/14/24 12:00 Discharge Medications: New acetaminophen 500 mg Tablet 1,000 mg PO Q6H PRN (Reason: pain/fever) Qty: 0 0RF levothyroxine 100 mcg Tablet 100 mcg PO DAILY@0700 Qty: 30 1RF docusate sodium 100 mg Capsule 100 mg PO DAILY Qty: 90 1RF ibuprofen 600 mg Tablet 600 mg PO Q6H PRNQty: 60 0RF Continued One A Day Women's DHA 28 mg iron- 800 mcg combo pack 1 pkg PO .QD Qty: 120 2RF metoclopramide HCl [Reglan] 10 mg tablet 10 mg PO Q6H PRN (Reason: headache) Qty: 30 2RF pyridoxine (vitamin B6) 10 mg tablet 10 mg PO QDAY Probiotic Yeast Support 5.02 billion cell capsule,delayed release(DR/EC) 1 cap PO .hs Qty: 90 1RF Discontinued aspirin [Adult Aspirin Regimen] 81 mg tablet,delayed release (DR/EC) 81 mg PO QDAY valacyclovir 1 gram tablet 1,000 mg PO BID Qty: 60 1RF levothyroxine 125 mcg tablet 125 mcg PO QDAY Qty: 90 2RF levothyroxine 25 mcg tablet 25 mcg PO QDAY Qty: 45 0RF Rx Instructions: Take in addition to 125 mcg tab (pt already has) for total of 150 mcg. Discharge Orders: Discharge Order (Routine); Ordered 04/14/24 Ordered By: Carlito Ng Patient Education: OB Over the Counter Medication Information, OB Vaginal/Breast Feeding Additional Instructions: Discharge instructions were reviewed with the patient including signs and symptoms of infection and home going medications Nothing vaginally for 6 weeks: no tampons or intercourse Off Work or School for 6 weeks 2-week visit: discuss feeding concerns, review control options and screen for anxiety/depression. 6-week visit for an annual exam. consultation services are available to all mothers and babies for the first year after delivery.? To make an appointment, please call [phone]. Activity Level: Activity as Tolerated Discharge Diet: Regular Follow Up Appointments: [facility] [Provider Group] Forms: [employer] Info Instructions
[2024-04-14 09:10] VITALS: BP 117/72; PULSE 100; RESP 16; TEMP 36.6; O2SAT 96
[2024-04-14] MEDS: DOCUSATE SODIUM 100 MG CAPSULE PO (09:51)
[2024-04-14] MEDS: hydrOXYzine pamoate 25 MG CAPSULE PO (09:51)
== END 2024-04-14 12:00 | disposition home or self-care (01) | DRG 806 ==
LOC: OB 20:59
PROVIDERS: Admitting Provider Midwife; Visit Provider Midwife
DX: O99.344 Other mental disorders complicating childbirth (principal); F41.1 Generalized anxiety disorder; F43.10 Post-traumatic stress disorder, unspecified; F60.3 Borderline personality disorder; F32.A Depression, unspecified; F50.82 Avoidant/restrictive food intake disorder; Z91.410 Personal history of adult physical and sexual abuse; O98.32 Other infections with a predominantly sexual mode of transmission complicating childbirth; A60.04 Herpesviral vulvovaginitis; O21.9 Vomiting of pregnancy, unspecified; O99.284 Endocrine, nutritional and metabolic diseases complicating childbirth; E03.8 Other specified hypothyroidism; I73.00 Raynaud's syndrome without gangrene; M79.7 Fibromyalgia; Z37.0 Single live birth; Z3A.38 38 weeks gestation of pregnancy
CPT/HCPCS: 01967; 36415; 84112; 85018; 85025; 86592; 86850; 86900; 86901; A9270; J2371; J3010; J7120

== ENCOUNTER 2024-10-06 18:33 | Outpatient (CLI) | payer OTHER, MEDICAID, SELFPAY | END 2024-10-06 18:34 | disposition home or self-care (01) | PROVIDERS: Visit Provider Midwife | DX: N92.0 Excessive and frequent menstruation with regular cycle (principal); E06.3 Autoimmune thyroiditis; E04.1 Nontoxic single thyroid nodule | CPT/HCPCS: 84432; 84439; 84443; 86376; 86800; 87045; 87046; 87427 ==

== ENCOUNTER 2024-10-16 15:06 | Outpatient (CLI) | payer OTHER, MEDICAID, SELFPAY ==
--- NOTE | 2024-10-16 15:00 | CRLHL7_ITS ---
For Patients: As a result of the Century Cures Act, medical imaging exams and procedure reports are released immediately into your electronic medical record. You may view this report before your referring provider. If you have questions, please contact your health care provider. INDICATION: excessive menstruation COMPARISON: None. TECHNIQUE: 2D freeman-scale and color Doppler images were acquired of the pelvis using a transabdominal and transvaginal approach. Transvaginal imaging performed to better visualize the endometrial stripe and ovaries. FINDINGS: Sonographic images demonstrate a normal size and smooth outer contour of the uterus. Uterus measures 7.2 cm in length by 3.3 cm in AP diameter by 4.4 cm in transverse dimension. The myometrium has a normal uniform echotexture. The endometrial lining appears normal and measures 3.3 mm in composite thickness. The right ovary measures 3.7 x 2.3 x 2.2 cm in size and the left ovary measures 2.8 x 3.0 x 2.6 cm. The ovaries demonstrate normal arterial and venous blood flow on color Doppler analysis. There are no suspicious fluid collections within the cul-de-sac. IMPRESSION: Normal pelvic ultrasound. Dictated by Jayson Araujo MD @ 10/16/2024 4:04:35 PM (Electronically Signed)
--- NOTE | 2024-10-16 16:00 | CRLHL7_ITS ---
For Patients: As a result of the Century Cures Act, medical imaging exams and procedure reports are released immediately into your electronic medical record. You may view this report before your referring provider. If you have questions, please contact your health care provider. INDICATION: Nontoxic single thyroid nodule COMPARISON: none TECHNIQUE: Saxena scale and color Doppler images were acquired of the thyroid gland. FINDINGS: Thyroid is diffusely heterogeneous. The right lobe measures 4.6 x 1.0 x 1.0 cm and the left lobe measures 4.4 x 1.2 x 1.5 cm in size. Isthmus measures 2 millimeters. There are no suspicious masses or nodules. The color Doppler images demonstrate normal vascularity. There is no evidence of cervical lymphadenopathy or parathyroid mass. IMPRESSION: Diffusely heterogeneous thyroid without nodule. Dictated by Jayson Araujo MD @ 10/16/2024 4:06:32 PM (Electronically Signed)
== END 2024-10-16 15:07 | disposition home or self-care (01) ==
LOC: US 15:07
PROVIDERS: Visit Provider Midwife
DX: N92.0 Excessive and frequent menstruation with regular cycle (principal); E04.1 Nontoxic single thyroid nodule
CPT/HCPCS: 76536; 76830; 76856